=== PATIENT | male | born 1980 | race Caucasian/White ===

== ENCOUNTER 2019-03-31 15:07 | Inpatient (IN) | payer OTHER ==
[2019-03-31 19:06] VITALS: BMI 24.0
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
[2019-03-31] MEDS ORDERED: chlordiazePOXIDE HCL 25 MG CAPSULE PO PRN (21:07)
[2019-03-31] MEDS ORDERED: MENTHOL/PHENOL 1 EACH UD MM PRN (21:09)
[2019-03-31] MEDS ORDERED: METHOCARBAMOL 500 MG TABLET PO PRN (21:09)
[2019-03-31] MEDS ORDERED: MAGNESIUM CITRATE 300 ML BOTTLE PO PRN (21:09)
[2019-03-31] MEDS ORDERED: MAGNESIUM HYDROX 2400MG/30ML ORAL SUSPENSION 30 ML CUP PO PRN (21:09)
[2019-03-31] MEDS ORDERED: MELATONIN 5 MG TABLETS PO PRN (21:09)
[2019-03-31] MEDS ORDERED: IBUPROFEN 400 MG TABLET (FP) PO PRN (21:09)
[2019-03-31] MEDS ORDERED: ACETAMINOPHEN 325 MG TABLET (FP) PO PRN ×2 (21:09)
[2019-03-31] MEDS ORDERED: NICOTINE POLACRILEX 2 MG GUM BUC PRN (21:09)
[2019-03-31] MEDS: GABAPENTIN 300 MG CAPSULE (FP) PO SCH (22:52)
[2019-03-31] MEDS: chlordiazePOXIDE HCL 25 MG CAPSULE PO SCH (22:52)
[2019-03-31] MEDS: THIAMINE HCL 100 MG TABLET (FP) PO SCH (22:52)
[2019-03-31] MEDS: MIRTAZAPINE 15 MG TABLET (FP) PO SCH (22:52)
[2019-04-01] MEDS: chlordiazePOXIDE HCL 25 MG CAPSULE PO SCH ×4 (05:44→22:12)
[2019-04-01] MEDS: GABAPENTIN 300 MG CAPSULE (FP) PO SCH ×3 (05:45→22:12)
[2019-04-01] MEDS ORDERED: BUPRENORPHINE/NALOXONE 8 MG/2 MG FILM PACKET SL ONE (10:00)
[2019-04-01] MEDS: PRENATAL VITAMINS W/ FOLIC ACID TABLET (FP) PO SCH (10:15)
[2019-04-01] MEDS: NICOTINE 14 MG/24 HOURS TOPICAL PATCH TD SCH (10:15)
[2019-04-01 12:05] LABS: HEMATOCRIT 41.1 % (35.4-49); HEMOGLOBIN 13.7 GM/dL (11.7-16.9); MCH 30.7 pg (25.7-33.7); MCHC 33.4 g/dl (32.0-35.9); MEAN PLT VOLUME 9.2 fl (7.5-11.1); PLATELET COUNT 219 K/MM3 (134-434); RBC 4.47 M/mm3 (4.00-5.60); RDW 13.3 % (11.9-15.9); WHITE BLOOD COUNT 6.2 K/mm3 (4.0-10.0)
[2019-04-01 12:15] LABS: ALBUMIN 3.7 g/dl (3.4-5.0); BILIRUBIN,TOTAL 0.6 mg/dL (0.2-1); BLOOD UREA NITROGEN 13.4 mg/dL (7-18); CALCIUM 8.8 mg/dL (8.5-10.1); CREATININE 0.8 mg/dL (0.55-1.3); POTASSIUM 4.4 mmol/L (3.5-5.1); TOT PROT 6.6 g/dl (6.4-8.2)
--- NOTE | 2019-04-01 12:18 | EKG ---
Test Reason : Blood Pressure : / mmHG Vent. Rate : 067 BPM Atrial Rate : 067 BPM P-R Int : 154 ms QRS Dur : 092 ms QT Int : 390 ms P-R-T Axes : 070 080 060 degrees QTc Int : 412 ms NORMAL SINUS RHYTHM WITH SINUS ARRHYTHMIA NORMAL ECG NO PREVIOUS ECGS AVAILABLE Confirmed by CARLOS MCNAMARA MD ([id number]) on 04/01/2019 12:17:40 PM Referred By: ZARI HAYNES Confirmed By:CARLOS MCNAMARA MD
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
--- NOTE | 2019-04-01 14:40 | PN ---
S CIWA - CIWA Score Nausea/Vomitin-No Nausea/No Vomiting Muscle Tremors: 3 Anxiety: 3 Agitation: 1-Slight > Activity Paroxysmal Sweats: No Perspiration Orientation: 0-Oriented Tacttile Disturbances: 2-Mild Itch/Numbness/Burn Auditory Disturbances: 2-Mild Harshness/Frighten Visual Disturbances: 1-Very Mild Sensitivity Headache: 0-None Present CIWA-Ar Total Score: 12 BHS Progress Note (SOAP) Subjective: Tremors, Anxious, Fatigue. Objective: PATIENT A & O X 3. IN NO ACUTE DISTRESS. 04/01/19 14:37 Vital Signs Temperature 97.0 F L 04/01/19 13:34 Pulse Rate 56 L 04/01/19 13:34 Respiratory Rate 16 04/01/19 13:34 Blood Pressure 99/64 04/01/19 13:34 O2 Sat by Pulse Oximetry (%) Laboratory Tests 04/01/19 04/01/19 04/01/19 08:13 08:13 08:13 WBC 6.2 RBC 4.47 Hgb 13.7 Hct 41.1 MCV 92.0 MCH 30.7 MCHC 33.4 RDW 13.3 Plt Count 219 MPV 9.2 Sodium 143 Potassium 4.4 Chloride 106 Carbon Dioxide 28 Anion Gap 9 BUN 13.4 Creatinine 0.8 Est GFR (CKD-EPI)AfAm 129.51 Est GFR (CKD-EPI)NonAf 111.74 Random Glucose 85 Calcium 8.8 Total Bilirubin 0.6 AST 17 ALT 21 Alkaline Phosphatase 58 Total Protein 6.6 Albumin 3.7 RPR Titer Nonreactive LABS NOTED. RESULTS OF DETOX ADMISSION QFT /TB TEST PENDING. 04/01/19 14:39 Assessment: 04/01/19 14:38 WITHDRAWAL SYMPTOMS. Plan: CONTINUE DETOX.
[2019-04-01] MEDS: MIRTAZAPINE 15 MG TABLET (FP) PO SCH (22:12)
[2019-04-01] MEDS: THIAMINE HCL 100 MG TABLET (FP) PO SCH (22:12)
[2019-04-01] MEDS: QUEtiapine FUMARATE 50 MG TABLET PO SCH (22:12)
[2019-04-02] MEDS: GABAPENTIN 300 MG CAPSULE (FP) PO SCH ×3 (05:50→22:09)
[2019-04-02] MEDS: chlordiazePOXIDE HCL 25 MG CAPSULE PO SCH ×4 (05:50→22:09)
[2019-04-02] MEDS: SERTRALINE HCL 50 MG TABLET (FP) PO SCH (11:00)
[2019-04-02] MEDS: PRENATAL VITAMINS W/ FOLIC ACID TABLET (FP) PO SCH (11:00)
[2019-04-02] MEDS: NICOTINE 14 MG/24 HOURS TOPICAL PATCH TD SCH (11:01)
[2019-04-02] MEDS: BUPRENORPHINE/NALOXONE 8 MG/2 MG FILM PACKET SL SCH (13:35)
--- NOTE | 2019-04-02 13:41 | PN ---
S CIWA - CIWA Score Nausea/Vomitin Muscle Tremors: 3 Anxiety: 4-Mod. Anxious/Guarded Agitation: 3 Paroxysmal Sweats: 3 Orientation: 0-Oriented Tacttile Disturbances: 0-None Auditory Disturbances: 0-None Visual Disturbances: 0-None Headache: 0-None Present CIWA-Ar Total Score: 15 S Progress Note (SOAP) Subjective: Tremors, Sweating, Anxious, Stomach Cramping, Diarrhea. Patient reports that he believes that he has "Food Poisoning.' He also reports that he was vomiting earlier, but that that has subsided now. Objective: PATIENT A & O X 3, OBSERVED AMBULATING ON UNIT UNASSISTED. 04/02/19 13:33 Vital Signs Temperature 97.1 F L 04/02/19 13:26 Pulse Rate 90 04/02/19 13:26 Respiratory Rate 18 04/02/19 13:26 Blood Pressure 109/70 04/02/19 13:26 O2 Sat by Pulse Oximetry (%) Laboratory Tests 04/01/19 04/01/19 04/01/19 08:13 08:13 08:13 WBC 6.2 RBC 4.47 Hgb 13.7 Hct 41.1 MCV 92.0 MCH 30.7 MCHC 33.4 RDW 13.3 Plt Count 219 MPV 9.2 Sodium 143 Potassium 4.4 Chloride 106 Carbon Dioxide 28 Anion Gap 9 BUN 13.4 Creatinine 0.8 Est GFR (CKD-EPI)AfAm 129.51 Est GFR (CKD-EPI)NonAf 111.74 Random Glucose 85 Calcium 8.8 Total Bilirubin 0.6 AST 17 ALT 21 Alkaline Phosphatase 58 Total Protein 6.6 Albumin 3.7 RPR Titer Nonreactive LABS NOTED. RESULTS OF DETOX ADMISSION QFT /TB TEST PENDING 04/02/19 13:34 Assessment: 04/02/19 13:34 WITHDRAWAL SYMPTOMS. Plan: CONTINUE DETOX. INCREASE DAILY PO WATER INTAKE. PATIENT REPORTS HISTORY OF PRESCRIBED SUBOXONE, 8/2 MG SL DAILY. PATIENT REPORTS THAT HE PICKS MEDICATION UP DIRECTLY FROM HIS SUBOXONE MEDICAL PROVIDER (DR. FANY RAMOS [place], [place] [facility] I-STOP PROVIDER REGISTRY (SEE BELOW) SHOWS THAT PATIENT WAS LAST DISPENSED SUBOXONE, 8-2 MG SL TID (30-DAY SUPPLY) ON 03/02/2019. THIS CONFIRMED BY PHARMACIST ROCIO AT DISPENSING PHARMACY ([facility], [place], [place]). HOWEVER, ACCORDING TO PATIENT, PER INSTRUCTIONS OF DR. RAMOS, HE ONLY TAKES 1 FILM OF SUBOXONE, 8-2 MG SL DAILY BECAUSE IT CAUSES HIM TO BE CONSTIPATED AND TO FEEL ABDOMINAL DISCOMFORT WHEN HE TAKES IT TID. NURSING ATTENDANT ATTEMPTED TO CONTACT DR. RAMOS'S OFFICE DIRECTLY X 3 TIMES; HOWEVER, ONLY RECEIVED VOICEMAIL GREETING EACH TIME. SUBOXONE WAS PRESENT IN DETOX ADMISSION UDS. WILL ORDER SUBOXONE, 8-2 MG SL DAILY FOR DETOX ADMISSION. PATIENT VERBALIZED UNDERSTANDING AND VERBALIZED CONSENT OF THIS ORDER. Confidential Drug Utilization Report Search Terms: Evgeny Delatorre, 1980 Search Date: 04/02/2019 01:36:52 PM The Drug Utilization Report below displays all of the controlled substance prescriptions, if any, that your patient has filled in the last twelve months. The information displayed on this report is compiled from pharmacy submissions to the Department, and accurately reflects the information as submitted by the pharmacies. This report was requested by: Nicolás Tsang | Reference #: [id number] You have not added a MIKI number. Keeping your MIKI number(s) up to date on the My MIKI Numbers page will enable the separation of your prescriptions from others ' in the search results. Others' Prescriptions Patient Name: Evgeny Delatorre Date: 1980 Address: [address] [place] [address] Sex: Male Rx Written Rx Dispensed Drug Quantity Days Supply Prescriber Name 03/01/2019 03/02/2019 buprenorphine-naloxone 8-2 mg sl film 90 30 Fany Ramos MD 01/31/2019 02/01/2019 buprenorphine-naloxone 8-2 mg sl film 90 30 Fany Ramos MD 12/08/2018 12/09/2018 buprenorphine-naloxone 8-2 mg sl tablet 90 30 Fany Ramos MD 10/06/2018 10/07/2018 buprenorphine-naloxone 8-2 mg sl tablet 90 30 Fany Ramos MD Patient Name: Evgeny Delatorre Date: 1980 Address: [place] [address] Sex: Male Rx Written Rx Dispensed Drug Quantity Days Supply Prescriber Name 05/31/2018 05/31/2018 clonazepam 0.5 mg tablet 28 14 Mark Liriano 04/30/2018 04/30/2018 clonazepam 0.5 mg tablet 60 30 Mark Liriano
[2019-04-02] MEDS: BISMUTH SUBSALICYLATE 524 MG/30 ML UD PO PRN (17:40)
[2019-04-02] MEDS: MIRTAZAPINE 15 MG TABLET (FP) PO SCH (22:09)
[2019-04-02] MEDS: THIAMINE HCL 100 MG TABLET (FP) PO SCH (22:09)
[2019-04-02] MEDS: QUEtiapine FUMARATE 50 MG TABLET PO SCH (22:09)
[2019-04-03] MEDS ORDERED: chlordiazePOXIDE HCL 10 MG CAPSULE PO PRN
[2019-04-03] MEDS: BISMUTH SUBSALICYLATE 524 MG/30 ML UD PO PRN ×2 (01:10→19:27)
[2019-04-03] MEDS: MAG HYDROX/AL HYDROX/SIMETH 30 ML UNIT-DOSE CUP PO PRN ×2 (04:03→18:03)
[2019-04-03] MEDS: GABAPENTIN 300 MG CAPSULE (FP) PO SCH ×3 (05:49→22:19)
[2019-04-03] MEDS: chlordiazePOXIDE HCL 10 MG CAPSULE PO SCH ×4 (05:49→22:22)
[2019-04-03] MEDS: NICOTINE 14 MG/24 HOURS TOPICAL PATCH TD SCH (10:36)
[2019-04-03] MEDS: PRENATAL VITAMINS W/ FOLIC ACID TABLET (FP) PO SCH (10:36)
[2019-04-03] MEDS: BUPRENORPHINE/NALOXONE 8 MG/2 MG FILM PACKET SL SCH (10:36)
[2019-04-03] MEDS: SERTRALINE HCL 50 MG TABLET (FP) PO SCH (10:36)
--- NOTE | 2019-04-03 13:13 | PN ---
[facility] CIWA - CIWA Score Nausea/Vomitin-Mild Nausea/No Vomiting Muscle Tremors: 3 Anxiety: 2 Agitation: 3 Paroxysmal Sweats: 1-Minimal Palms Moist Orientation: 0-Oriented Tacttile Disturbances: 0-None Auditory Disturbances: 0-None Visual Disturbances: 0-None Headache: 1-Very Mild CIWA-Ar Total Score: 11 S Progress Note (SOAP) Subjective: 38 years old male 2nd patient [facility] admission since 2019 was admitted on 03/31/19 for alcohol withdrawal sx management doing well with librium detox regimen diarrhea x 1 tolerate fluid and food well Objective: 04/03/19 13:15 Vital Signs Temperature 97.1 F L 04/03/19 09:50 Pulse Rate 65 04/03/19 09:50 Respiratory Rate 18 04/03/19 09:50 Blood Pressure 96/54 L 04/03/19 09:50 O2 Sat by Pulse Oximetry (%) Laboratory Last Values WBC 6.2 K/mm3 (4.0-10.0) 04/01/19 08:13 RBC 4.47 M/mm3 (4.00-5.60) 04/01/19 08:13 Hgb 13.7 GM/dL (11.7-16.9) 04/01/19 08:13 Hct 41.1 % (35.4-49) 04/01/19 08:13 MCV 92.0 fl (80-96) 04/01/19 08:13 MCH 30.7 pg (25.7-33.7) 04/01/19 08:13 MCHC 33.4 g/dl (32.0-35.9) 04/01/19 08:13 RDW 13.3 % (11.9-15.9) 04/01/19 08:13 Plt Count 219 K/MM3 (134-434) 04/01/19 08:13 MPV 9.2 fl (7.5-11.1) 04/01/19 08:13 Sodium 143 mmol/L (136-145) 04/01/19 08:13 Potassium 4.4 mmol/L (3.5-5.1) 04/01/19 08:13 Chloride 106 mmol/L (98-107) 04/01/19 08:13 Carbon Dioxide 28 mmol/L (21-32) 04/01/19 08:13 Anion Gap 9 MMOL/L (8-16) 04/01/19 08:13 BUN 13.4 mg/dL (7-18) 04/01/19 08:13 Creatinine 0.8 mg/dL (0.55-1.3) 04/01/19 08:13 Est GFR (CKD-EPI)AfAm 129.51 04/01/19 08:13 Est GFR (CKD-EPI)NonAf 111.74 04/01/19 08:13 Random Glucose 85 mg/dL (74-106) 04/01/19 08:13 Calcium 8.8 mg/dL (8.5-10.1) 04/01/19 08:13 Total Bilirubin 0.6 mg/dL (0.2-1) 04/01/19 08:13 AST 17 U/L (15-37) 04/01/19 08:13 ALT 21 U/L (13-61) 04/01/19 08:13 Alkaline Phosphatase 58 U/L (45-117) 04/01/19 08:13 Total Protein 6.6 g/dl (6.4-8.2) 04/01/19 08:13 Albumin 3.7 g/dl (3.4-5.0) 04/01/19 08:13 RPR Titer Nonreactive (NONREACTIVE) 04/01/19 08:13 TB (QFT) Incubation (.) 04/01/19 08:13 TB Test (QFT) Nil 0.08 IU/mL (.) 04/01/19 08:13 TB Test (QFT) Mitogen >10.00 IU/mL (.) 04/01/19 08:13 TB Test (QFT) Antigen 0.19 IU/mL (.) 04/01/19 08:13 TB Test (QFT) Negative (Negative) 04/01/19 08:13 TB Positive Criteria (.) 04/01/19 08:13 lab noted Assessment: 04/03/19 13:15 alcohol withdrawal sx Plan: continue librium detox regimen
[2019-04-03] MEDS ORDERED: LOPERAMIDE HCL 2 MG CAPSULE PO PRN (21:31)
[2019-04-03] MEDS: THIAMINE HCL 100 MG TABLET (FP) PO SCH (22:19)
[2019-04-03] MEDS: MIRTAZAPINE 15 MG TABLET (FP) PO SCH (22:19)
[2019-04-03] MEDS: QUEtiapine FUMARATE 50 MG TABLET PO SCH (22:19)
[2019-04-04] MEDS: chlordiazePOXIDE HCL 10 MG CAPSULE PO SCH ×2 (06:14→17:38)
[2019-04-04] MEDS: GABAPENTIN 300 MG CAPSULE (FP) PO SCH ×3 (06:14→22:09)
--- NOTE | 2019-04-04 09:26 | PN ---
[facility] CIWA - CIWA Score Nausea/Vomitin-No Nausea/No Vomiting Muscle Tremors: 3 Anxiety: 2 Agitation: 2 Paroxysmal Sweats: 1-Minimal Palms Moist Orientation: 0-Oriented Tacttile Disturbances: 0-None Auditory Disturbances: 0-None Visual Disturbances: 0-None Headache: 0-None Present CIWA-Ar Total Score: 8 S Progress Note (SOAP) Subjective: doing well with librium detox regimen hesitate to discuss aftercare with staff discuss the risks of hepatitis c in relation to alcohol drinking alert speech clearly agrees to consider aftercare Objective: 04/04/19 09:29 Vital Signs Temperature 97.0 F L 04/04/19 09:28 Pulse Rate 64 04/04/19 09:28 Respiratory Rate 18 04/04/19 09:28 Blood Pressure 109/77 04/04/19 09:28 O2 Sat by Pulse Oximetry (%) Laboratory Last Values WBC 6.2 K/mm3 (4.0-10.0) 04/01/19 08:13 RBC 4.47 M/mm3 (4.00-5.60) 04/01/19 08:13 Hgb 13.7 GM/dL (11.7-16.9) 04/01/19 08:13 Hct 41.1 % (35.4-49) 04/01/19 08:13 MCV 92.0 fl (80-96) 04/01/19 08:13 MCH 30.7 pg (25.7-33.7) 04/01/19 08:13 MCHC 33.4 g/dl (32.0-35.9) 04/01/19 08:13 RDW 13.3 % (11.9-15.9) 04/01/19 08:13 Plt Count 219 K/MM3 (134-434) 04/01/19 08:13 MPV 9.2 fl (7.5-11.1) 04/01/19 08:13 Sodium 143 mmol/L (136-145) 04/01/19 08:13 Potassium 4.4 mmol/L (3.5-5.1) 04/01/19 08:13 Chloride 106 mmol/L (98-107) 04/01/19 08:13 Carbon Dioxide 28 mmol/L (21-32) 04/01/19 08:13 Anion Gap 9 MMOL/L (8-16) 04/01/19 08:13 BUN 13.4 mg/dL (7-18) 04/01/19 08:13 Creatinine 0.8 mg/dL (0.55-1.3) 04/01/19 08:13 Est GFR (CKD-EPI)AfAm 129.51 04/01/19 08:13 Est GFR (CKD-EPI)NonAf 111.74 04/01/19 08:13 Random Glucose 85 mg/dL (74-106) 04/01/19 08:13 Calcium 8.8 mg/dL (8.5-10.1) 04/01/19 08:13 Total Bilirubin 0.6 mg/dL (0.2-1) 04/01/19 08:13 AST 17 U/L (15-37) 04/01/19 08:13 ALT 21 U/L (13-61) 04/01/19 08:13 Alkaline Phosphatase 58 U/L (45-117) 04/01/19 08:13 Total Protein 6.6 g/dl (6.4-8.2) 04/01/19 08:13 Albumin 3.7 g/dl (3.4-5.0) 04/01/19 08:13 RPR Titer Nonreactive (NONREACTIVE) 04/01/19 08:13 TB (QFT) Incubation (.) 04/01/19 08:13 TB Test (QFT) Nil 0.08 IU/mL (.) 04/01/19 08:13 TB Test (QFT) Mitogen >10.00 IU/mL (.) 04/01/19 08:13 TB Test (QFT) Antigen 0.19 IU/mL (.) 04/01/19 08:13 TB Test (QFT) Negative (Negative) 04/01/19 08:13 TB Positive Criteria (.) 04/01/19 08:13 lab noted Assessment: 04/04/19 09:30 alcohol withdrawal sx Plan: continue librium detox regimen
[2019-04-04] MEDS: SERTRALINE HCL 50 MG TABLET (FP) PO SCH (10:05)
[2019-04-04] MEDS: BUPRENORPHINE/NALOXONE 8 MG/2 MG FILM PACKET SL SCH (10:05)
[2019-04-04] MEDS: PRENATAL VITAMINS W/ FOLIC ACID TABLET (FP) PO SCH (10:05)
[2019-04-04] MEDS: NICOTINE 14 MG/24 HOURS TOPICAL PATCH TD SCH (10:06)
[2019-04-04] MEDS: QUEtiapine FUMARATE 50 MG TABLET PO SCH (22:09)
[2019-04-04] MEDS: MIRTAZAPINE 15 MG TABLET (FP) PO SCH (22:09)
[2019-04-04] MEDS: THIAMINE HCL 100 MG TABLET (FP) PO SCH (22:09)
[2019-04-05] MEDS ORDERED: chlordiazePOXIDE HCL 10 MG CAPSULE PO ONE (05:00)
[2019-04-05] MEDS: GABAPENTIN 300 MG CAPSULE (FP) PO SCH ×2 (07:12→13:12)
--- NOTE | 2019-04-05 09:25 | DS ---
[facility] Detox Discharge Summary Admission Date: 03/31/19 Discharge Date: 04/05/19 - History Present History: Alcohol Dependence Additional Comments: 38 years old male admitted on 03/31/19 for alcohol withdrawal sx management did well with librium detox regimen no complication throughout the detox stay seen by psychiatrist treated with remeron zoloft seroquel patient is alert oriented x 3 denies dizziness ambulating steady gait speech clearly coherently abdomen soft no rebound tenderness skin warm and dry - Physical Exam Results Vital Signs: Vital Signs Temperature 98.2 F 04/05/19 06:11 Pulse Rate 61 04/05/19 06:11 Respiratory Rate 18 04/05/19 06:11 Blood Pressure 100/61 04/05/19 06:11 O2 Sat by Pulse Oximetry (%) Pertinent Admission Physical Exam Findings: alcohol withdrawal sx Laboratory Last Values WBC 6.2 K/mm3 (4.0-10.0) 04/01/19 08:13 RBC 4.47 M/mm3 (4.00-5.60) 04/01/19 08:13 Hgb 13.7 GM/dL (11.7-16.9) 04/01/19 08:13 Hct 41.1 % (35.4-49) 04/01/19 08:13 MCV 92.0 fl (80-96) 04/01/19 08:13 MCH 30.7 pg (25.7-33.7) 04/01/19 08:13 MCHC 33.4 g/dl (32.0-35.9) 04/01/19 08:13 RDW 13.3 % (11.9-15.9) 04/01/19 08:13 Plt Count 219 K/MM3 (134-434) 04/01/19 08:13 MPV 9.2 fl (7.5-11.1) 04/01/19 08:13 Sodium 143 mmol/L (136-145) 04/01/19 08:13 Potassium 4.4 mmol/L (3.5-5.1) 04/01/19 08:13 Chloride 106 mmol/L (98-107) 04/01/19 08:13 Carbon Dioxide 28 mmol/L (21-32) 04/01/19 08:13 Anion Gap 9 MMOL/L (8-16) 04/01/19 08:13 BUN 13.4 mg/dL (7-18) 04/01/19 08:13 Creatinine 0.8 mg/dL (0.55-1.3) 04/01/19 08:13 Est GFR (CKD-EPI)AfAm 129.51 04/01/19 08:13 Est GFR (CKD-EPI)NonAf 111.74 04/01/19 08:13 Random Glucose 85 mg/dL (74-106) 04/01/19 08:13 Calcium 8.8 mg/dL (8.5-10.1) 04/01/19 08:13 Total Bilirubin 0.6 mg/dL (0.2-1) 04/01/19 08:13 AST 17 U/L (15-37) 04/01/19 08:13 ALT 21 U/L (13-61) 04/01/19 08:13 Alkaline Phosphatase 58 U/L (45-117) 04/01/19 08:13 Total Protein 6.6 g/dl (6.4-8.2) 04/01/19 08:13 Albumin 3.7 g/dl (3.4-5.0) 04/01/19 08:13 RPR Titer Nonreactive (NONREACTIVE) 04/01/19 08:13 TB (QFT) Incubation (.) 04/01/19 08:13 TB Test (QFT) Nil 0.08 IU/mL (.) 04/01/19 08:13 TB Test (QFT) Mitogen >10.00 IU/mL (.) 04/01/19 08:13 TB Test (QFT) Antigen 0.19 IU/mL (.) 04/01/19 08:13 TB Test (QFT) Negative (Negative) 04/01/19 08:13 TB Positive Criteria (.) 04/01/19 08:13 lab noted patient prefers returning to suboxone program for medical and mental issues - Treatment Hospital Course: Detox Protocol Followed, Detoxed Safely, Responded well, Discharged Condition Good, Rehab Referral Accepted Patient has Accepted a Rehab Referral to: suboxone maintenance program - Medication Discharge Medications: Ambulatory Orders Buprenorphine HCl/Naloxone HCl [Suboxone 8 mg-2 mg Sl Tablets] 8 mg PO TID 03/31 Gabapentin [Neurontin] 300 mg PO TID 03/31/19 Mirtazapine [Remeron -] 15 mg PO HS 03/31/19 Sertraline HCl [Zoloft -] 50 mg PO DAILY 03/31/19 - Diagnosis (1) Encounter for monitoring Suboxone maintenance therapy Current Visit: Yes Status: Chronic (2) Alcohol dependence with uncomplicated withdrawal Current Visit: Yes Status: Acute (3) Chronic viral hepatitis C Current Visit: Yes Status: Chronic Qualifiers: Hepatic coma status: without hepatic coma Qualified Code(s): B18.2 - Chronic viral hepatitis C (4) Nicotine dependence Current Visit: Yes Status: Acute Qualifiers: Nicotine product type: cigarettes Substance use status: in withdrawal Qualified Code(s): F17.213 - Nicotine dependence, cigarettes, with withdrawal (5) Substance induced mood disorder Current Visit: Yes Status: Suspected - AMA Did Patient Leave Against Medical Advice: No CIWA Score - CIWA Score Nausea/Vomitin-No Nausea/No Vomiting Muscle Tremors: 2 Anxiety: 1-Mildly Anxious Agitation: 1-Slight > Activity Paroxysmal Sweats: No Perspiration Orientation: 0-Oriented Tacttile Disturbances: 0-None Auditory Disturbances: 0-None Visual Disturbances: 0-None Headache: 0-None Present CIWA-Ar Total Score: 4
[2019-04-05 09:52] VITALS: BP 104/73; PULSE 625; TEMP 97.4
[2019-04-05] MEDS: SERTRALINE HCL 50 MG TABLET (FP) PO SCH (10:09)
[2019-04-05] MEDS: BUPRENORPHINE/NALOXONE 8 MG/2 MG FILM PACKET SL SCH (10:09)
[2019-04-05] MEDS: PRENATAL VITAMINS W/ FOLIC ACID TABLET (FP) PO SCH (10:09)
[2019-04-05] MEDS: NICOTINE 14 MG/24 HOURS TOPICAL PATCH TD SCH (10:12)
== END 2019-04-05 14:20 | disposition other institution (70) | DRG 773 ==
LOC: YASAS 15:07 → Y3N 22:14
PROVIDERS: ADMIT Surgery; ATTEND Surgery
PROC: HZ2ZZZZ Detoxification Services for Substance Abuse Treatment (ICD-10-PCS; principal; 2019-03-31)
DX: F10.230 Alcohol dependence with withdrawal, uncomplicated (principal); F11.20 Opioid dependence, uncomplicated; F14.20 Cocaine dependence, uncomplicated; F16.10 Hallucinogen abuse, uncomplicated; F17.213 Nicotine dependence, cigarettes, with withdrawal; F20.9 Schizophrenia, unspecified; F19.24 Other psychoactive substance dependence with psychoactive substance-induced mood disorder; F32.9 Major depressive disorder, single episode, unspecified; G47.00 Insomnia, unspecified; B18.2 Chronic viral hepatitis C; Z51.81 Encounter for therapeutic drug level monitoring; Z91.5 Personal history of self-harm
CPT/HCPCS: 36415; 80053; 85027; 86480; 86593; 93005; 93010

== ENCOUNTER 2019-04-05 14:24 | Inpatient (IN) | payer OTHER ==
[2019-04-05] MEDS ORDERED: MENTHOL/PHENOL 1 EACH UD MM PRN (15:15)
[2019-04-05] MEDS ORDERED: LOPERAMIDE HCL 2 MG CAPSULE PO PRN (15:15)
[2019-04-05] MEDS ORDERED: NICOTINE POLACRILEX 2 MG GUM BUC PRN (15:15)
[2019-04-05] MEDS ORDERED: MAGNESIUM HYDROX 2400MG/30ML ORAL SUSPENSION 30 ML CUP PO PRN (15:15)
[2019-04-05] MEDS ORDERED: MAGNESIUM CITRATE 300 ML BOTTLE PO PRN (15:15)
[2019-04-05] MEDS ORDERED: MAG HYDROX/AL HYDROX/SIMETH 30 ML UNIT-DOSE CUP PO PRN (15:15)
[2019-04-05] MEDS ORDERED: ACETAMINOPHEN 325 MG TABLET (FP) PO PRN (15:15)
[2019-04-05] MEDS ORDERED: IBUPROFEN 400 MG TABLET (FP) PO PRN (15:15)
[2019-04-05] MEDS ORDERED: guaiFENesin 200 MG/10 ML 10 ML UNIT-DOSE CUPS PO PRN (15:15)
[2019-04-05] MEDS ORDERED: P-EPHED 60MG/TRIPROLIDI 2.5MG TABLET PO PRN (15:15)
--- NOTE | 2019-04-05 15:15 | HP ---
[facility] Rehab Assess/Revision - Admission History Admitted to Rehab from: [facility] Date of Admission to Rehab: 04/05/19 - Findings Detox History & Physical reviewed: Yes Concur with findings: Yes Comments/Additional Findings: transferred from detox to rehab admission as per protocol Inpatient Rehab Admission - Rehab Decision to Admit Inpatient rehab admission?: Yes - Initial Determination Are CD services needed?: Yes Free of communicable disease: Yes Not in need of hospitalization: Yes - Rehab Admission Criteria Previous failed treatment: Yes Poor recovery environment: Yes Comorbidities: Yes Lacks judgement: Yes Patient is meeting Inpatient Rehab admission criteria:: Yes
[2019-04-05] MEDS: HYDROCORTISONE 1% TOPICAL CREAM 30 GM TUBE TP SCH ×2 (17:59→21:06)
[2019-04-05] MEDS: MIRTAZAPINE 15 MG TABLET (FP) PO SCH (21:07)
[2019-04-05] MEDS: GABAPENTIN 300 MG CAPSULE (FP) PO SCH (21:07)
[2019-04-05] MEDS: THIAMINE HCL 100 MG TABLET (FP) PO SCH (21:07)
[2019-04-05] MEDS: MELATONIN 5 MG TABLETS PO PRN (21:07)
[2019-04-05] MEDS: RANITIDINE HCL 150 MG TABLET (FP) PO SCH (21:07)
[2019-04-06] MEDS: GABAPENTIN 300 MG CAPSULE (FP) PO SCH ×3 (06:23→21:06)
[2019-04-06] MEDS: SERTRALINE HCL 50 MG TABLET (FP) PO SCH (10:05)
[2019-04-06] MEDS: HYDROCORTISONE 1% TOPICAL CREAM 30 GM TUBE TP SCH ×4 (10:05→21:05)
[2019-04-06] MEDS: PRENATAL VITAMINS W/ FOLIC ACID TABLET (FP) PO SCH (10:05)
[2019-04-06] MEDS: RANITIDINE HCL 150 MG TABLET (FP) PO SCH ×2 (10:05→21:06)
[2019-04-06] MEDS: NICOTINE 14 MG/24 HOURS TOPICAL PATCH TD SCH (10:06)
[2019-04-06] MEDS: BUPRENORPHINE/NALOXONE 8 MG/2 MG FILM PACKET SL SCH (10:08)
[2019-04-06] MEDS: MELATONIN 5 MG TABLETS PO PRN (21:06)
[2019-04-06] MEDS: MIRTAZAPINE 15 MG TABLET (FP) PO SCH (21:06)
[2019-04-06] MEDS: THIAMINE HCL 100 MG TABLET (FP) PO SCH (21:06)
[2019-04-07] MEDS: GABAPENTIN 300 MG CAPSULE (FP) PO SCH ×3 (06:53→21:02)
[2019-04-07] MEDS: RANITIDINE HCL 150 MG TABLET (FP) PO SCH ×2 (09:55→21:02)
[2019-04-07] MEDS: SERTRALINE HCL 50 MG TABLET (FP) PO SCH (09:55)
[2019-04-07] MEDS: PRENATAL VITAMINS W/ FOLIC ACID TABLET (FP) PO SCH (09:56)
[2019-04-07] MEDS: BUPRENORPHINE/NALOXONE 8 MG/2 MG FILM PACKET SL SCH (09:59)
[2019-04-07] MEDS: HYDROCORTISONE 1% TOPICAL CREAM 30 GM TUBE TP SCH ×4 (09:59→21:02)
[2019-04-07] MEDS: NICOTINE 14 MG/24 HOURS TOPICAL PATCH TD SCH (09:59)
--- NOTE | 2019-04-07 11:58 | PN ---
[facility] Progress Note Note: Pt is requesting for a lower dose of suboxone from 8mg/2mg to 4mg/1mg because has personal reasons "plans of testimony of book to be published is supposed to be clean not sober. So I plan to go down to 2 mg then off in seven months'. pt also reports physical side effect reasons of constipation. Pt states he is with [facility] [place] on [address] [place] [address]. Ph: . Call was placed to this program today but no response. Pt c/o numbness to either of his upper extremities lately when he lays on any side of them at night and wonders if Neurontin is the cause. Pt states he has been on Neurontin for awhile and no complaints. Pt denies pain or tingling at this time. Vital Signs - 24 hr 04/07/19 04/07/19 04/07/19 00:30 03:30 07:03 Temperature 96.2 F L Pulse Rate 45 L Respiratory 18 18 18 Rate Blood Pressure 116/75 Alert o x 3 Nad oob, ambulating and participating on the unit with no difficulty. Extremities:Active ROM; Strength +5; No pain/swelling noted. A/P Suboxone MAT Increase po fluids Colace if needed for stool softner D/w Pt he will follow up with psych consult for re-eval of meds. Pt is agreeable to poc.
[2019-04-07] MEDS: MIRTAZAPINE 15 MG TABLET (FP) PO SCH (21:02)
[2019-04-07] MEDS: THIAMINE HCL 100 MG TABLET (FP) PO SCH (21:02)
[2019-04-08] MEDS: GABAPENTIN 300 MG CAPSULE (FP) PO SCH ×3 (06:58→21:03)
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
[2019-04-08] MEDS: PRENATAL VITAMINS W/ FOLIC ACID TABLET (FP) PO SCH (09:58)
[2019-04-08] MEDS: HYDROCORTISONE 1% TOPICAL CREAM 30 GM TUBE TP SCH ×4 (09:58→21:03)
[2019-04-08] MEDS: SERTRALINE HCL 50 MG TABLET (FP) PO SCH (09:58)
[2019-04-08] MEDS: RANITIDINE HCL 150 MG TABLET (FP) PO SCH ×2 (09:58→21:02)
[2019-04-08] MEDS: NICOTINE 14 MG/24 HOURS TOPICAL PATCH TD SCH (09:58)
[2019-04-08] MEDS: BUPRENORPHINE/NALOXONE 4 MG/1 MG FILM PACKET SL SCH (10:00)
[2019-04-08] MEDS: hydrOXYzine PAMOATE 50 MG CAPSULE (FP) PO PRN (14:39)
[2019-04-08] MEDS: QUEtiapine FUMARATE 100 MG TABLET (FP) PO SCH (21:02)
[2019-04-08] MEDS: MIRTAZAPINE 15 MG TABLET (FP) PO SCH (21:02)
[2019-04-08] MEDS: THIAMINE HCL 100 MG TABLET (FP) PO SCH (21:03)
[2019-04-08] MEDS ORDERED: QUEtiapine FUMARATE 50 MG TABLET PO SCH (22:00)
[2019-04-09] MEDS: GABAPENTIN 300 MG CAPSULE (FP) PO SCH ×3 (06:47→21:11)
[2019-04-09] MEDS: BUPRENORPHINE/NALOXONE 4 MG/1 MG FILM PACKET SL SCH (09:36)
[2019-04-09] MEDS: PRENATAL VITAMINS W/ FOLIC ACID TABLET (FP) PO SCH (09:36)
[2019-04-09] MEDS: RANITIDINE HCL 150 MG TABLET (FP) PO SCH ×2 (09:36→21:11)
[2019-04-09] MEDS: SERTRALINE HCL 50 MG TABLET (FP) PO SCH (09:36)
[2019-04-09] MEDS: NICOTINE 14 MG/24 HOURS TOPICAL PATCH TD SCH (09:36)
[2019-04-09] MEDS: HYDROCORTISONE 1% TOPICAL CREAM 30 GM TUBE TP SCH ×4 (09:37→21:11)
[2019-04-09] MEDS: hydrOXYzine PAMOATE 50 MG CAPSULE (FP) PO PRN (14:27)
[2019-04-09] MEDS: MIRTAZAPINE 15 MG TABLET (FP) PO SCH (21:11)
[2019-04-09] MEDS: QUEtiapine FUMARATE 100 MG TABLET (FP) PO SCH (21:11)
[2019-04-09] MEDS: THIAMINE HCL 100 MG TABLET (FP) PO SCH (21:12)
[2019-04-10] MEDS: GABAPENTIN 300 MG CAPSULE (FP) PO SCH ×2 (06:25→13:47)
[2019-04-10] MEDS: PRENATAL VITAMINS W/ FOLIC ACID TABLET (FP) PO SCH (09:41)
[2019-04-10] MEDS: NICOTINE 14 MG/24 HOURS TOPICAL PATCH TD SCH (09:41)
[2019-04-10] MEDS: HYDROCORTISONE 1% TOPICAL CREAM 30 GM TUBE TP SCH ×2 (09:41→13:46)
[2019-04-10] MEDS: RANITIDINE HCL 150 MG TABLET (FP) PO SCH (09:42)
[2019-04-10] MEDS: SERTRALINE HCL 50 MG TABLET (FP) PO SCH (09:42)
[2019-04-10] MEDS: BUPRENORPHINE/NALOXONE 4 MG/1 MG FILM PACKET SL SCH (09:43)
[2019-04-10] MEDS: hydrOXYzine PAMOATE 50 MG CAPSULE (FP) PO PRN (13:47)
[2019-04-10 15:10] VITALS: BP 140/67; PULSE 85; TEMP 98.4
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
== END 2019-04-10 15:29 | disposition home or self-care (01) | DRG 772 ==
LOC: YASAS 14:24 → Y5N 14:25
PROVIDERS: ADMIT Neuromusculoskeletal Medicine & OMM; ATTEND Neuromusculoskeletal Medicine & OMM
PROC: HZ42ZZZ Group Counseling for Substance Abuse Treatment, Cognitive-Behavioral (ICD-10-PCS; principal; 2019-04-05)
DX: F10.20 Alcohol dependence, uncomplicated (principal); F11.20 Opioid dependence, uncomplicated; F14.20 Cocaine dependence, uncomplicated; F17.210 Nicotine dependence, cigarettes, uncomplicated; F20.9 Schizophrenia, unspecified; F19.282 Other psychoactive substance dependence with psychoactive substance-induced sleep disorder

== ENCOUNTER 2019-05-07 08:45 | Inpatient (IN) | payer OTHER ==
[2019-05-07 09:18] VITALS: BMI 25.2
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
[2019-05-07] MEDS ORDERED: ACETAMINOPHEN 325 MG TABLET (FP) PO PRN ×2 (13:34)
[2019-05-07] MEDS ORDERED: METHOCARBAMOL 500 MG TABLET PO PRN (13:34)
[2019-05-07] MEDS ORDERED: MAGNESIUM HYDROX 2400MG/30ML ORAL SUSPENSION 30 ML CUP PO PRN (13:34)
[2019-05-07] MEDS ORDERED: MELATONIN 5 MG TABLETS PO PRN (13:34)
[2019-05-07] MEDS ORDERED: NICOTINE POLACRILEX 2 MG GUM BUC PRN (13:34)
[2019-05-07] MEDS ORDERED: MAGNESIUM CITRATE 300 ML BOTTLE PO PRN (13:34)
[2019-05-07] MEDS ORDERED: IBUPROFEN 400 MG TABLET (FP) PO PRN (13:34)
[2019-05-07] MEDS ORDERED: BISMUTH SUBSALICYLATE 524 MG/30 ML UD PO PRN (13:34)
[2019-05-07] MEDS ORDERED: MENTHOL/PHENOL 1 EACH UD MM PRN (13:34)
[2019-05-07] MEDS ORDERED: diazePAM 5 MG TABLET PO ONE (14:00)
[2019-05-07] MEDS: METHADONE HCL 40 MG DISPERSABLE TABLET PO SCH (14:34)
[2019-05-07] MEDS: NICOTINE 14 MG/24 HOURS TOPICAL PATCH TD SCH (14:35)
[2019-05-07] MEDS: diazePAM 5 MG TABLET PO SCH ×2 (14:35→21:43)
[2019-05-07] MEDS: POLYETHYLENE GLYCOL 3350 119 GM BTL PO SCH (16:09)
[2019-05-07] MEDS: diazePAM 5 MG TABLET PO PRN (18:54)
[2019-05-07] MEDS ORDERED: QUEtiapine FUMARATE 25 MG TABLET (FP) ONE (21:06)
[2019-05-07] MEDS: THIAMINE HCL 100 MG TABLET (FP) PO SCH (21:43)
[2019-05-07] MEDS ORDERED: MIRTAZAPINE 15 MG TABLET (FP) PO ONE (22:00)
[2019-05-07] MEDS ORDERED: QUEtiapine FUMARATE 50 MG TABLET PO ONE (22:00)
[2019-05-07] MEDS: MAG HYDROX/AL HYDROX/SIMETH 30 ML UNIT-DOSE CUP PO PRN (22:55)
[2019-05-08] MEDS: POLYETHYLENE GLYCOL 3350 119 GM BTL PO SCH (03:32)
[2019-05-08] MEDS ORDERED: METHADONE HCL 10 MG TABLET PO ONE (06:00)
[2019-05-08] MEDS: METHADONE HCL 40 MG DISPERSABLE TABLET PO SCH (06:13)
[2019-05-08] MEDS: diazePAM 5 MG TABLET PO SCH ×3 (06:14→22:17)
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
[2019-05-08] MEDS: PRENATAL VITAMINS W/ FOLIC ACID TABLET (FP) PO SCH (10:05)
[2019-05-08] MEDS ORDERED: QUEtiapine FUMARATE 25 MG TABLET (FP) ONE (10:06)
[2019-05-08] MEDS: SERTRALINE HCL 50 MG TABLET (FP) PO SCH (10:06)
[2019-05-08] MEDS: QUEtiapine FUMARATE 50 MG TABLET PO SCH ×2 (10:06→22:17)
[2019-05-08] MEDS: NICOTINE 14 MG/24 HOURS TOPICAL PATCH TD SCH ×2 (10:07→13:16)
[2019-05-08 10:27] LABS: HEMATOCRIT 41.2 % (35.4-49); HEMOGLOBIN 13.4 GM/dL (11.7-16.9); MCH 30.1 pg (25.7-33.7); MCHC 32.7 g/dl (32.0-35.9); MEAN CELL VOLUME 92.1 fl (80-96); MEAN PLT VOLUME 9.7 fl (7.5-11.1); PLATELET COUNT 275 K/MM3 (134-434); RBC 4.47 M/mm3 (4.00-5.60); RDW 13.4 % (11.9-15.9); WHITE BLOOD COUNT 5.8 K/mm3 (4.0-10.0)
[2019-05-08 10:31] LABS: BILIRUBIN,TOTAL 0.3 mg/dL (0.2-1); BLOOD UREA NITROGEN 10.6 mg/dL (7-18); CALCIUM 9.1 mg/dL (8.5-10.1); CREATININE 0.9 mg/dL (0.55-1.3); POTASSIUM 4.6 mmol/L (3.5-5.1); TOT PROT 7.2 g/dl (6.4-8.2)
--- NOTE | 2019-05-08 10:38 | PN ---
S CIWA - CIWA Score Nausea/Vomitin-No Nausea/No Vomiting Muscle Tremors: 2 Anxiety: 2 Agitation: 2 Paroxysmal Sweats: 3 Orientation: 0-Oriented Tacttile Disturbances: 0-None Auditory Disturbances: 0-None Visual Disturbances: 0-None Headache: 2-Mild CIWA-Ar Total Score: 11 S Progress Note (SOAP) Subjective: c/o headache, sweats, anxiety, and interrupted sleep. Objective: 05/08/19 10:38 Vital Signs 05/08/19 05/08/19 06:24 09:23 Temperature 97 F L 97.6 F Pulse Rate 57 L 55 L Respiratory 18 18 Rate Blood Pressure 94/59 L 91/64 Lab Results WBC 5.8 K/mm3 (4.0-10.0) 05/08/19 07:15 RBC 4.47 M/mm3 (4.00-5.60) 05/08/19 07:15 Hgb 13.4 GM/dL (11.7-16.9) 05/08/19 07:15 Hct 41.2 % (35.4-49) 05/08/19 07:15 MCV 92.1 fl (80-96) 05/08/19 07:15 MCHC 32.7 g/dl (32.0-35.9) 05/08/19 07:15 RDW 13.4 % (11.9-15.9) 05/08/19 07:15 Plt Count 275 K/MM3 (134-434) D 05/08/19 07:15 Sodium 140 mmol/L (136-145) 05/08/19 07:15 Potassium 4.6 mmol/L (3.5-5.1) 05/08/19 07:15 Chloride 105 mmol/L (98-107) 05/08/19 07:15 Carbon Dioxide 32 mmol/L (21-32) 05/08/19 07:15 Anion Gap 4 MMOL/L (8-16) L 05/08/19 07:15 BUN 10.6 mg/dL (7-18) 05/08/19 07:15 Creatinine 0.9 mg/dL (0.55-1.3) 05/08/19 07:15 Random Glucose 74 mg/dL (74-106) 05/08/19 07:15 Calcium 9.1 mg/dL (8.5-10.1) 05/08/19 07:15 Labs noted. Assessment: 05/08/19 10:38 AOX3, in no respiratory distress. Full ROM, ambulating in the unit. Withdrawal symptoms. Plan: continue detox.
[2019-05-08] MEDS: diazePAM 5 MG TABLET PO PRN ×2 (11:25→19:03)
[2019-05-08] MEDS: THIAMINE HCL 100 MG TABLET (FP) PO SCH (22:17)
[2019-05-08] MEDS: MAG HYDROX/AL HYDROX/SIMETH 30 ML UNIT-DOSE CUP PO PRN (22:17)
[2019-05-08] MEDS: MIRTAZAPINE 15 MG TABLET (FP) PO SCH (22:17)
[2019-05-09] MEDS: METHADONE HCL 40 MG DISPERSABLE TABLET PO SCH (05:23)
[2019-05-09] MEDS: diazePAM 5 MG TABLET PO SCH ×2 (05:23→17:29)
[2019-05-09] MEDS: MAG HYDROX/AL HYDROX/SIMETH 30 ML UNIT-DOSE CUP PO PRN (08:19)
[2019-05-09] MEDS: PRENATAL VITAMINS W/ FOLIC ACID TABLET (FP) PO SCH (10:17)
[2019-05-09] MEDS: QUEtiapine FUMARATE 50 MG TABLET PO SCH ×2 (10:17→21:42)
[2019-05-09] MEDS: SERTRALINE HCL 50 MG TABLET (FP) PO SCH (10:17)
[2019-05-09] MEDS: diazePAM 5 MG TABLET PO PRN ×2 (10:17→21:42)
[2019-05-09] MEDS: POLYETHYLENE GLYCOL 3350 119 GM BTL PO SCH (10:23)
[2019-05-09] MEDS: NICOTINE 14 MG/24 HOURS TOPICAL PATCH TD SCH (10:23)
[2019-05-09] MEDS ORDERED: FAMOTIDINE 20 MG TABLET PO ONE (11:30)
[2019-05-09] MEDS: BACLOFEN 10 MG TABLET (FP) PO SCH ×2 (15:21→21:42)
--- NOTE | 2019-05-09 18:16 | PN ---
S CIWA - CIWA Score Nausea/Vomitin-No Nausea/No Vomiting Muscle Tremors: 2 Anxiety: 3 Agitation: 2 Paroxysmal Sweats: 3 Orientation: 0-Oriented Tacttile Disturbances: 0-None Auditory Disturbances: 0-None Visual Disturbances: 0-None Headache: 0-None Present CIWA-Ar Total Score: 10 BHS Progress Note (SOAP) Subjective: Sweating, Anxious. Objective: PATIENT A & O X 3, OBSERVED AMBULATING ON DETOX UNIT UNASSISTED. IN NO ACUTE DISTRESS. 05/09/19 18:15 Vital Signs Temperature 97.7 F 05/09/19 17:02 Pulse Rate 62 05/09/19 17:02 Respiratory Rate 16 05/09/19 17:02 Blood Pressure 101/66 05/09/19 17:02 O2 Sat by Pulse Oximetry (%) Laboratory Tests 05/08/19 05/08/19 05/08/19 07:15 07:15 07:15 WBC 5.8 RBC 4.47 Hgb 13.4 Hct 41.2 MCV 92.1 MCH 30.1 MCHC 32.7 RDW 13.4 Plt Count 275 D MPV 9.7 Sodium 140 Potassium 4.6 Chloride 105 Carbon Dioxide 32 Anion Gap 4 L BUN 10.6 Creatinine 0.9 Est GFR (CKD-EPI)AfAm 123.39 Est GFR (CKD-EPI)NonAf 106.46 Random Glucose 74 Calcium 9.1 Total Bilirubin 0.3 AST 14 L ALT 24 Alkaline Phosphatase 68 Total Protein 7.2 Albumin 4.0 RPR Titer Nonreactive LABS NOTED. Assessment: 05/09/19 18:15 WITHDRAWAL SYMPTOMS. Plan: CONTINUE DETOX. PATIENT SCHEDULED FOR D/C FROM DETOX UNIT TOMORROW.
[2019-05-09] MEDS: THIAMINE HCL 100 MG TABLET (FP) PO SCH (21:42)
[2019-05-09] MEDS: MIRTAZAPINE 15 MG TABLET (FP) PO SCH (21:42)
[2019-05-10] MEDS: METHADONE HCL 40 MG DISPERSABLE TABLET PO SCH (05:15)
[2019-05-10] MEDS ORDERED: diazePAM 5 MG TABLET PO ONE (06:00)
--- NOTE | 2019-05-10 08:51 | DS ---
[facility] Detox Discharge Summary Admission Date: 05/07/19 Discharge Date: 05/10/19 - History Present History: Alcohol Dependence, Cannabis Dependence, Sedative Dependence, MMTP - Physical Exam Results Vital Signs: Vital Signs Temperature 97.7 F 05/10/19 06:06 Pulse Rate 55 L 05/10/19 06:06 Respiratory Rate 16 05/10/19 06:06 Blood Pressure 98/65 05/10/19 06:06 O2 Sat by Pulse Oximetry (%) - Treatment Hospital Course: Detox Protocol Followed, Detoxed Safely, Responded well, Discharged Condition Good - Medication Discharge Medications: Ambulatory Orders Gabapentin [Neurontin] 300 mg PO TID 03/31/19 Mirtazapine [Remeron -] 15 mg PO HS 03/31/19 Sertraline HCl [Zoloft -] 50 mg PO DAILY 03/31/19 Quetiapine Fumarate [Seroquel -] 50 mg PO HS 04/08/19 Methadone [Dolophine -] 40 mg PO DAILY 05/07/19 - Diagnosis (1) Chronic viral hepatitis C Current Visit: Yes Status: Chronic Qualifiers: Hepatic coma status: without hepatic coma Qualified Code(s): B18.2 - Chronic viral hepatitis C (2) Cocaine dependence Current Visit: Yes Status: Chronic Qualifiers: Substance use status: uncomplicated Qualified Code(s): F14.20 - Cocaine dependence, uncomplicated (3) Constipation Current Visit: Yes Status: Chronic Qualifiers: Constipation type: drug induced constipation Qualified Code(s): K59.03 - Drug induced constipation (4) Methadone maintenance therapy patient Current Visit: Yes Status: Chronic (5) Nicotine dependence Current Visit: Yes Status: Chronic Qualifiers: Nicotine product type: cigarettes Substance use status: in withdrawal Qualified Code(s): F17.213 - Nicotine dependence, cigarettes, with withdrawal (6) Sedative, hypnotic or anxiolytic abuse, uncomplicated Current Visit: Yes Status: Chronic (7) Alcohol dependence with uncomplicated withdrawal Current Visit: No Status: Acute - AMA Did Patient Leave Against Medical Advice: No
[2019-05-10 09:11] VITALS: BP 115/79; PULSE 73; TEMP 97.1
[2019-05-10] MEDS ORDERED: FAMOTIDINE 20 MG TABLET PO SCH (10:00)
[2019-05-10] MEDS: PRENATAL VITAMINS W/ FOLIC ACID TABLET (FP) PO SCH (10:29)
[2019-05-10] MEDS: SERTRALINE HCL 50 MG TABLET (FP) PO SCH (10:31)
[2019-05-10] MEDS: NICOTINE 14 MG/24 HOURS TOPICAL PATCH TD SCH (10:31)
[2019-05-10] MEDS: QUEtiapine FUMARATE 50 MG TABLET PO SCH (10:31)
[2019-05-10] MEDS: POLYETHYLENE GLYCOL 3350 119 GM BTL PO SCH (11:19)
== END 2019-05-10 13:50 | disposition other institution (70) | DRG 773 ==
LOC: YASAS 08:45 → Y3N 13:51
PROVIDERS: ADMIT Allergy & Immunology; ATTEND Allergy & Immunology
PROC: HZ2ZZZZ Detoxification Services for Substance Abuse Treatment (ICD-10-PCS; principal; 2019-05-07)
DX: F10.230 Alcohol dependence with withdrawal, uncomplicated (principal); F11.20 Opioid dependence, uncomplicated; F13.20 Sedative, hypnotic or anxiolytic dependence, uncomplicated; F14.20 Cocaine dependence, uncomplicated; F12.20 Cannabis dependence, uncomplicated; F17.210 Nicotine dependence, cigarettes, uncomplicated; F19.282 Other psychoactive substance dependence with psychoactive substance-induced sleep disorder; F31.9 Bipolar disorder, unspecified; F20.9 Schizophrenia, unspecified; B18.2 Chronic viral hepatitis C; Z86.69 Personal history of other diseases of the nervous system and sense organs
CPT/HCPCS: 36415; 80053; 85027; 86593; J0475

== ENCOUNTER 2019-05-10 12:35 | Inpatient (IN) | payer OTHER ==
[2019-05-10] MEDS ORDERED: IBUPROFEN 400 MG TABLET (FP) PO PRN (14:55)
[2019-05-10] MEDS ORDERED: guaiFENesin 200 MG/10 ML 10 ML UNIT-DOSE CUPS PO PRN (14:55)
[2019-05-10] MEDS ORDERED: P-EPHED 60MG/TRIPROLIDI 2.5MG TABLET PO PRN (14:55)
[2019-05-10] MEDS ORDERED: MAGNESIUM CITRATE 300 ML BOTTLE PO PRN (14:55)
[2019-05-10] MEDS ORDERED: MENTHOL/PHENOL 1 EACH UD MM PRN (14:55)
[2019-05-10] MEDS ORDERED: ACETAMINOPHEN 325 MG TABLET (FP) PO PRN (14:55)
[2019-05-10] MEDS ORDERED: MAGNESIUM HYDROX 2400MG/30ML ORAL SUSPENSION 30 ML CUP PO PRN (14:55)
[2019-05-10] MEDS ORDERED: NICOTINE POLACRILEX 4 MG GUM BUC PRN (14:55)
[2019-05-10] MEDS ORDERED: LOPERAMIDE HCL 2 MG CAPSULE PO PRN (14:55)
[2019-05-10] MEDS ORDERED: COLLOIDAL OATMEAL 1 BAR EACH TP PRN (14:59)
[2019-05-10] MEDS: GABAPENTIN 300 MG CAPSULE (FP) PO SCH (21:21)
[2019-05-10] MEDS: MIRTAZAPINE 15 MG TABLET (FP) PO SCH (21:21)
[2019-05-10] MEDS: THIAMINE HCL 100 MG TABLET (FP) PO SCH (21:22)
[2019-05-10] MEDS: QUEtiapine FUMARATE 50 MG TABLET PO SCH (21:22)
[2019-05-11] MEDS: GABAPENTIN 300 MG CAPSULE (FP) PO SCH ×3 (07:01→21:46)
[2019-05-11] MEDS: SERTRALINE HCL 50 MG TABLET (FP) PO SCH (09:08)
[2019-05-11] MEDS: PRENATAL VITAMINS W/ FOLIC ACID TABLET (FP) PO SCH (09:08)
[2019-05-11] MEDS: QUEtiapine FUMARATE 50 MG TABLET PO SCH ×2 (09:08→21:46)
[2019-05-11] MEDS: NICOTINE 21 MG/24 HOURS TOPICAL PATCH TD SCH (09:09)
[2019-05-11] MEDS ORDERED: METHADONE HCL 40 MG DISPERSABLE TABLET PO SCH (10:00)
[2019-05-11] MEDS: HYDROCORTISONE 1% TOPICAL CREAM 30 GM TUBE TP PRN (13:23)
[2019-05-11] MEDS: hydrOXYzine PAMOATE 25 MG CAPSULE (FP) PO PRN ×2 (17:03→21:46)
[2019-05-11] MEDS: THIAMINE HCL 100 MG TABLET (FP) PO SCH (21:46)
[2019-05-11] MEDS: DOCUSATE SODIUM 100 MG CAPSULE (FP) PO SCH (21:46)
[2019-05-11] MEDS: MIRTAZAPINE 15 MG TABLET (FP) PO SCH (21:46)
[2019-05-11] MEDS: MAG HYDROX/AL HYDROX/SIMETH 30 ML UNIT-DOSE CUP PO PRN (21:48)
[2019-05-12] MEDS: METHADONE HCL 40 MG DISPERSABLE TABLET PO SCH (06:09)
[2019-05-12] MEDS: DOCUSATE SODIUM 100 MG CAPSULE (FP) PO SCH ×3 (06:09→21:31)
[2019-05-12] MEDS: GABAPENTIN 300 MG CAPSULE (FP) PO SCH ×3 (06:09→21:31)
[2019-05-12] MEDS: SERTRALINE HCL 50 MG TABLET (FP) PO SCH (10:34)
[2019-05-12] MEDS: PRENATAL VITAMINS W/ FOLIC ACID TABLET (FP) PO SCH (10:34)
[2019-05-12] MEDS: QUEtiapine FUMARATE 50 MG TABLET PO SCH ×2 (10:34→21:31)
[2019-05-12] MEDS: NICOTINE 21 MG/24 HOURS TOPICAL PATCH TD SCH (10:35)
[2019-05-12] MEDS: HYDROCORTISONE 1% TOPICAL CREAM 30 GM TUBE TP PRN (10:36)
[2019-05-12] MEDS: MIRTAZAPINE 15 MG TABLET (FP) PO SCH (21:31)
[2019-05-12] MEDS: THIAMINE HCL 100 MG TABLET (FP) PO SCH (21:31)
[2019-05-12] MEDS: MAG HYDROX/AL HYDROX/SIMETH 30 ML UNIT-DOSE CUP PO PRN (21:32)
[2019-05-12] MEDS: MELATONIN 5 MG TABLETS PO PRN (21:33)
[2019-05-13] MEDS: GABAPENTIN 300 MG CAPSULE (FP) PO SCH ×3 (05:59→21:17)
[2019-05-13] MEDS: DOCUSATE SODIUM 100 MG CAPSULE (FP) PO SCH ×3 (05:59→21:16)
[2019-05-13] MEDS: METHADONE HCL 40 MG DISPERSABLE TABLET PO SCH (06:02)
[2019-05-13] MEDS: QUEtiapine FUMARATE 50 MG TABLET PO SCH ×2 (11:02→21:16)
[2019-05-13] MEDS: SERTRALINE HCL 50 MG TABLET (FP) PO SCH (11:02)
[2019-05-13] MEDS: NICOTINE 21 MG/24 HOURS TOPICAL PATCH TD SCH (11:03)
[2019-05-13] MEDS: PRENATAL VITAMINS W/ FOLIC ACID TABLET (FP) PO SCH (11:03)
[2019-05-13] MEDS: hydrOXYzine PAMOATE 25 MG CAPSULE (FP) PO PRN (18:20)
[2019-05-13] MEDS: THIAMINE HCL 100 MG TABLET (FP) PO SCH (21:15)
[2019-05-13] MEDS: MELATONIN 5 MG TABLETS PO PRN (21:16)
[2019-05-13] MEDS: MIRTAZAPINE 15 MG TABLET (FP) PO SCH (21:16)
[2019-05-14] MEDS: DOCUSATE SODIUM 100 MG CAPSULE (FP) PO SCH ×3 (06:29→21:37)
[2019-05-14] MEDS: GABAPENTIN 300 MG CAPSULE (FP) PO SCH ×3 (06:29→21:37)
[2019-05-14] MEDS: METHADONE HCL 40 MG DISPERSABLE TABLET PO SCH (06:30)
[2019-05-14] MEDS: NICOTINE 21 MG/24 HOURS TOPICAL PATCH TD SCH (10:04)
[2019-05-14] MEDS: PRENATAL VITAMINS W/ FOLIC ACID TABLET (FP) PO SCH (10:05)
[2019-05-14] MEDS: QUEtiapine FUMARATE 50 MG TABLET PO SCH ×2 (10:05→21:37)
[2019-05-14] MEDS: HYDROCORTISONE 1% TOPICAL CREAM 30 GM TUBE TP PRN (10:05)
[2019-05-14] MEDS: SERTRALINE HCL 50 MG TABLET (FP) PO SCH (10:05)
[2019-05-14] MEDS: hydrOXYzine PAMOATE 25 MG CAPSULE (FP) PO PRN (14:07)
[2019-05-14] MEDS: THIAMINE HCL 100 MG TABLET (FP) PO SCH (21:37)
[2019-05-14] MEDS: MIRTAZAPINE 15 MG TABLET (FP) PO SCH (21:37)
[2019-05-15] MEDS: METHADONE HCL 40 MG DISPERSABLE TABLET PO SCH (06:18)
[2019-05-15] MEDS: GABAPENTIN 300 MG CAPSULE (FP) PO SCH ×3 (06:19→21:36)
[2019-05-15] MEDS: DOCUSATE SODIUM 100 MG CAPSULE (FP) PO SCH ×3 (06:19→21:36)
[2019-05-15] MEDS: PRENATAL VITAMINS W/ FOLIC ACID TABLET (FP) PO SCH (10:24)
[2019-05-15] MEDS: QUEtiapine FUMARATE 50 MG TABLET PO SCH ×2 (10:24→21:36)
[2019-05-15] MEDS: SERTRALINE HCL 50 MG TABLET (FP) PO SCH (10:25)
[2019-05-15] MEDS: NICOTINE 21 MG/24 HOURS TOPICAL PATCH TD SCH (10:25)
--- NOTE | 2019-05-15 12:07 | CONSULT ---
[facility] Psychiatric Consult - Data Date of interview: 05/15/19 Admission source: [facility]N Identifying data: Mr Delatorre is a 38 years old single male, father of 2 children, unemployed receiving SSI, domiciled seeking detox treatment for alcohol, opioid, cocaine, benzodiazepine , cannbis and phencyclidine Substance Abuse History: Reports history of alcohol, opioid, cocaine, xanax, marijuana and pcp use. Refer to addiction counselor's summary for further information Medical History: Significant for hepatitis C, GERD, cirrhosis of the liver and surgery for kidney stones. Patient is on methadone 40 mg/day from Smokes 5 cigarettes daily Psychiatric History: Patient was reently seen by YOLANDA Weber on 05/08/19 while in detox. Historical narrative remains consistent. Patient's first psychiatric contact was at 5 years of age after exhibiting hyperactivity and difficulty focusing. He was diagnosed with ADHD and started on psychotropic medications and psychotherapy. Treatment was discontinued after two years. His next psychiatric contact was as an adult when he became paranoid thinking that people want to kill him and believing that FBI was after him. He was then diagnosed with Paranoid Schizophrenia and started on antipsychotic medication. Reports previous psychiatric hospitalizations at [facility], [facility] (during incarceration in [facility]). Reportedly he cut his nipples while incarcerated because they looked abnormal but denies it being a suicide attempt. He reports that he currently sees a psychiatrist for medication management at the [facility] outpatient program in [facility] and reports being prescribed Zoloft 50mg, Mirtazapine 30mg HS, and Seroquel 50mg BID. When seen by YOLANDA weber on Zoloft 50 mg po daily, Remeron 15 mg po HS and Seroquel 50 mg po BID. At present, denies experiencing psychotic symptoms, S/H ideations. However, reports feeling mildly anxious and sleeping poorly. Requests that Remeron dosage be increased back to 30 mg/hs Physical/Sexual Abuse/Trauma History: Reorts being bullied as a child Mental Status Exam - Mental Status Exam Alert and Oriented to: Time, Place, Person Cognitive Function: Fair Patient Appearance: Well Groomed Mood: Anxious (mildly) Affect: Appropriate Patient Behavior: Cooperative Speech Pattern: Clear Voice Loudness: Normal Thought Process: Intact Hallucinations: Denies Suicidal Ideation: Denies Homicidal Ideation: Denies Insight/Judgement: Poor Sleep: Poorly Appetite: Good Muscle strength/Tone: Normal Gait/Station: Normal Psychiatric Findings - Problem List ([place] 1, 2,3) (1) ADHD (attention deficit hyperactivity disorder) Current Visit: Yes Status: Chronic (2) Chronic paranoid schizophrenia Current Visit: Yes Status: Chronic (3) Substance-induced anxiety disorder Current Visit: Yes Status: Acute (4) Substance-induced sleep disorder Current Visit: Yes Status: Acute (5) Alcohol dependence Current Visit: Yes Status: Acute (6) Cocaine dependence Current Visit: No Status: Acute Qualifiers: Substance use status: uncomplicated Qualified Code(s): F14.20 - Cocaine dependence, uncomplicated (7) Substance-induced sleep disorder Current Visit: No Status: Acute (8) Sedative, hypnotic or anxiolytic abuse Current Visit: Yes Status: Acute (9) Opioid dependence on agonist therapy Current Visit: Yes Status: Chronic (10) Nicotine dependence Current Visit: No Status: Chronic Qualifiers: Nicotine product type: cigarettes Substance use status: in withdrawal Qualified Code(s): F17.213 - Nicotine dependence, cigarettes, with withdrawal (11) Chronic viral hepatitis C Current Visit: No Status: Chronic Qualifiers: Hepatic coma status: without hepatic coma Qualified Code(s): B18.2 - Chronic viral hepatitis C Comment: untreated (12) History of seizure Current Visit: No Status: Resolved - Initial Treatment Plan Initial Treatment Plan: 1) Continue Zoloft 50 mg po daily and Seroquel 50 mg po BID. 2) Discontinue Remeron 15 mg po HS. 3) Start remeron 30 mg po HS. 4) Continue inpatient rehabilitation
[2019-05-15] MEDS: hydrOXYzine PAMOATE 50 MG CAPSULE (FP) PO PRN (14:07)
[2019-05-15] MEDS: THIAMINE HCL 100 MG TABLET (FP) PO SCH (21:36)
[2019-05-15] MEDS: MIRTAZAPINE 30 MG TABLET (FP) PO SCH (21:38)
[2019-05-16] MEDS: GABAPENTIN 300 MG CAPSULE (FP) PO SCH ×3 (07:10→21:35)
[2019-05-16] MEDS: DOCUSATE SODIUM 100 MG CAPSULE (FP) PO SCH ×3 (07:10→21:35)
[2019-05-16] MEDS: METHADONE HCL 40 MG DISPERSABLE TABLET PO SCH (07:10)
[2019-05-16] MEDS: PRENATAL VITAMINS W/ FOLIC ACID TABLET (FP) PO SCH (10:50)
[2019-05-16] MEDS: SERTRALINE HCL 50 MG TABLET (FP) PO SCH (10:50)
[2019-05-16] MEDS: NICOTINE 21 MG/24 HOURS TOPICAL PATCH TD SCH (10:50)
[2019-05-16] MEDS: QUEtiapine FUMARATE 50 MG TABLET PO SCH ×2 (10:50→21:37)
[2019-05-16] MEDS: hydrOXYzine PAMOATE 50 MG CAPSULE (FP) PO PRN (12:47)
[2019-05-16] MEDS: MIRTAZAPINE 30 MG TABLET (FP) PO SCH (21:35)
[2019-05-16] MEDS: MELATONIN 5 MG TABLETS PO PRN (21:36)
[2019-05-16] MEDS: THIAMINE HCL 100 MG TABLET (FP) PO SCH (21:36)
[2019-05-17] MEDS: GABAPENTIN 300 MG CAPSULE (FP) PO SCH ×3 (06:28→22:07)
[2019-05-17] MEDS: METHADONE HCL 40 MG DISPERSABLE TABLET PO SCH (06:28)
[2019-05-17] MEDS: DOCUSATE SODIUM 100 MG CAPSULE (FP) PO SCH ×3 (06:28→22:06)
[2019-05-17] MEDS: hydrOXYzine PAMOATE 50 MG CAPSULE (FP) PO PRN (10:37)
[2019-05-17] MEDS: SERTRALINE HCL 50 MG TABLET (FP) PO SCH (10:37)
[2019-05-17] MEDS: NICOTINE 21 MG/24 HOURS TOPICAL PATCH TD SCH (10:38)
[2019-05-17] MEDS: PRENATAL VITAMINS W/ FOLIC ACID TABLET (FP) PO SCH (10:38)
[2019-05-17] MEDS: QUEtiapine FUMARATE 50 MG TABLET PO SCH ×2 (10:38→22:06)
[2019-05-17] MEDS: HYDROCORTISONE 1% TOPICAL CREAM 30 GM TUBE TP PRN (14:07)
[2019-05-17] MEDS: MIRTAZAPINE 30 MG TABLET (FP) PO SCH (22:06)
[2019-05-17] MEDS: MELATONIN 5 MG TABLETS PO PRN (22:07)
[2019-05-17] MEDS: THIAMINE HCL 100 MG TABLET (FP) PO SCH (22:07)
[2019-05-18] MEDS: GABAPENTIN 300 MG CAPSULE (FP) PO SCH ×3 (06:46→21:38)
[2019-05-18] MEDS: DOCUSATE SODIUM 100 MG CAPSULE (FP) PO SCH ×3 (06:46→21:38)
[2019-05-18] MEDS: METHADONE HCL 10 MG TABLET PO SCH (07:35)
[2019-05-18] MEDS: PRENATAL VITAMINS W/ FOLIC ACID TABLET (FP) PO SCH (11:10)
[2019-05-18] MEDS: NICOTINE 21 MG/24 HOURS TOPICAL PATCH TD SCH (11:10)
[2019-05-18] MEDS: SERTRALINE HCL 50 MG TABLET (FP) PO SCH (11:10)
[2019-05-18] MEDS: hydrOXYzine PAMOATE 50 MG CAPSULE (FP) PO PRN (11:10)
[2019-05-18] MEDS: QUEtiapine FUMARATE 50 MG TABLET PO SCH ×2 (11:10→21:39)
[2019-05-18] MEDS: THIAMINE HCL 100 MG TABLET (FP) PO SCH (21:39)
[2019-05-18] MEDS: MELATONIN 5 MG TABLETS PO PRN (21:39)
[2019-05-18] MEDS: MIRTAZAPINE 30 MG TABLET (FP) PO SCH (21:39)
[2019-05-19] MEDS: GABAPENTIN 300 MG CAPSULE (FP) PO SCH ×3 (06:24→21:53)
[2019-05-19] MEDS: METHADONE HCL 10 MG TABLET PO SCH (06:24)
[2019-05-19] MEDS: DOCUSATE SODIUM 100 MG CAPSULE (FP) PO SCH ×3 (06:24→21:53)
[2019-05-19] MEDS: QUEtiapine FUMARATE 50 MG TABLET PO SCH ×2 (10:47→21:53)
[2019-05-19] MEDS: PRENATAL VITAMINS W/ FOLIC ACID TABLET (FP) PO SCH (10:47)
[2019-05-19] MEDS: hydrOXYzine PAMOATE 50 MG CAPSULE (FP) PO PRN (10:47)
[2019-05-19] MEDS: SERTRALINE HCL 50 MG TABLET (FP) PO SCH (10:47)
[2019-05-19] MEDS: NICOTINE 21 MG/24 HOURS TOPICAL PATCH TD SCH (10:48)
--- NOTE | 2019-05-19 12:04 | PN ---
S Progress Note Note: Pt requesting "dandruff shampoo for chronic itchy and scaly hair condition". Vital Signs - 24 hr 05/19/19 05/19/19 05/19/19 00:30 03:30 07:24 Temperature 97.9 F Pulse Rate 52 L Respiratory 18 18 18 Rate Blood Pressure 115/75 Head:Normocephalic,atruamatic,with dry flaky, white, scaly debris throughout hair. Scalp slightly red. No swelling. A/P Dx:Sebhorrheic dermatitis Selsun lotion 2.5% as directed
[2019-05-19] MEDS: SELENIUM SULFIDE 2.5% LOTION 4 OZ. TP SCH (14:33)
[2019-05-19] MEDS: MIRTAZAPINE 30 MG TABLET (FP) PO SCH (21:53)
[2019-05-19] MEDS: THIAMINE HCL 100 MG TABLET (FP) PO SCH (21:54)
[2019-05-19] MEDS: MELATONIN 5 MG TABLETS PO PRN (21:54)
[2019-05-20] MEDS: DOCUSATE SODIUM 100 MG CAPSULE (FP) PO SCH ×3 (06:46→21:03)
[2019-05-20] MEDS: GABAPENTIN 300 MG CAPSULE (FP) PO SCH ×3 (06:46→21:03)
[2019-05-20] MEDS: METHADONE HCL 10 MG TABLET PO SCH (06:47)
[2019-05-20] MEDS: SERTRALINE HCL 50 MG TABLET (FP) PO SCH (11:01)
[2019-05-20] MEDS: PRENATAL VITAMINS W/ FOLIC ACID TABLET (FP) PO SCH (11:01)
[2019-05-20] MEDS: QUEtiapine FUMARATE 50 MG TABLET PO SCH ×2 (11:01→21:03)
[2019-05-20] MEDS: NICOTINE 21 MG/24 HOURS TOPICAL PATCH TD SCH (11:02)
[2019-05-20] MEDS: hydrOXYzine PAMOATE 50 MG CAPSULE (FP) PO PRN (11:02)
[2019-05-20] MEDS: SELENIUM SULFIDE 2.5% LOTION 4 OZ. TP SCH (11:02)
[2019-05-20] MEDS: HYDROCORTISONE 1% TOPICAL CREAM 30 GM TUBE TP PRN (11:04)
[2019-05-20] MEDS: THIAMINE HCL 100 MG TABLET (FP) PO SCH (21:03)
[2019-05-20] MEDS: MIRTAZAPINE 30 MG TABLET (FP) PO SCH (21:03)
[2019-05-20] MEDS: MELATONIN 5 MG TABLETS PO PRN (21:04)
[2019-05-21] MEDS: METHADONE HCL 10 MG TABLET PO SCH (06:42)
[2019-05-21] MEDS: GABAPENTIN 300 MG CAPSULE (FP) PO SCH ×3 (06:42→21:16)
[2019-05-21] MEDS: DOCUSATE SODIUM 100 MG CAPSULE (FP) PO SCH ×3 (06:42→21:16)
[2019-05-21] MEDS: SELENIUM SULFIDE 2.5% LOTION 4 OZ. TP SCH (10:07)
[2019-05-21] MEDS: SERTRALINE HCL 50 MG TABLET (FP) PO SCH (10:07)
[2019-05-21] MEDS: QUEtiapine FUMARATE 50 MG TABLET PO SCH ×2 (10:07→21:16)
[2019-05-21] MEDS: PRENATAL VITAMINS W/ FOLIC ACID TABLET (FP) PO SCH (10:07)
[2019-05-21] MEDS: NICOTINE 21 MG/24 HOURS TOPICAL PATCH TD SCH (10:07)
[2019-05-21] MEDS: MIRTAZAPINE 30 MG TABLET (FP) PO SCH (21:16)
[2019-05-21] MEDS: MELATONIN 5 MG TABLETS PO PRN (21:16)
[2019-05-21] MEDS: THIAMINE HCL 100 MG TABLET (FP) PO SCH (21:17)
[2019-05-22] MEDS: METHADONE HCL 10 MG TABLET PO SCH (06:26)
[2019-05-22] MEDS: GABAPENTIN 300 MG CAPSULE (FP) PO SCH ×3 (06:26→21:35)
[2019-05-22] MEDS: DOCUSATE SODIUM 100 MG CAPSULE (FP) PO SCH ×3 (07:51→21:35)
[2019-05-22] MEDS: NICOTINE 21 MG/24 HOURS TOPICAL PATCH TD SCH (10:36)
[2019-05-22] MEDS: SELENIUM SULFIDE 2.5% LOTION 4 OZ. TP SCH (10:36)
[2019-05-22] MEDS: PRENATAL VITAMINS W/ FOLIC ACID TABLET (FP) PO SCH (10:37)
[2019-05-22] MEDS: QUEtiapine FUMARATE 50 MG TABLET PO SCH ×2 (10:37→21:36)
[2019-05-22] MEDS: HYDROCORTISONE 1% TOPICAL CREAM 30 GM TUBE TP PRN (10:38)
[2019-05-22] MEDS: SERTRALINE HCL 50 MG TABLET (FP) PO SCH (10:38)
[2019-05-22] MEDS: MIRTAZAPINE 30 MG TABLET (FP) PO SCH (21:36)
[2019-05-22] MEDS: THIAMINE HCL 100 MG TABLET (FP) PO SCH (21:36)
[2019-05-22] MEDS: MELATONIN 5 MG TABLETS PO PRN (21:36)
[2019-05-23] MEDS: METHADONE HCL 10 MG TABLET PO SCH (06:33)
[2019-05-23] MEDS: GABAPENTIN 300 MG CAPSULE (FP) PO SCH (06:34)
[2019-05-23] MEDS: DOCUSATE SODIUM 100 MG CAPSULE (FP) PO SCH (07:00)
[2019-05-23 07:21] VITALS: BP 115/77; PULSE 53; TEMP 98
[2019-05-23] MEDS: SERTRALINE HCL 50 MG TABLET (FP) PO SCH (10:32)
[2019-05-23] MEDS: SELENIUM SULFIDE 2.5% LOTION 4 OZ. TP SCH (10:32)
[2019-05-23] MEDS: PRENATAL VITAMINS W/ FOLIC ACID TABLET (FP) PO SCH (10:32)
[2019-05-23] MEDS: NICOTINE 21 MG/24 HOURS TOPICAL PATCH TD SCH (10:32)
[2019-05-23] MEDS: QUEtiapine FUMARATE 50 MG TABLET PO SCH (10:32)
--- NOTE | 2019-05-23 14:50 | DS ---
[facility] Rehab Discharge Summary - [facility] Rehab Discharge Summary Admission Date: 05/10/19 Discharge Date: 05/23/19 - History Present History: Alcohol dependence, Cocaine dependence, MMTP, Sedative dependence Additional Comments: Pt is a 38 y/o male with a hx of SURJIT admitted to rehab after detox treatment and requested early discharge today stating to check up on his housing arrangement. pt met with his counselor, Ms Rylie Shrestha and has been referred back to [facility] Methadone program. Pt reports comprehensive services of primary care, CD and mental health management at this location. Pertinent Past History: Hx of Seizures(drug withdrawal related) Hep C ADHD - Discharge Physical Exam Vital Signs: Vital Signs Temperature 98.0 F 05/23/19 07:18 Pulse Rate 53 L 05/23/19 07:18 Respiratory Rate 18 05/23/19 07:18 Blood Pressure 115/77 05/23/19 07:18 O2 Sat by Pulse Oximetry (%) Alert o x 3 nad oob with steady gait cardiac:s1 s2,rrr lungs:cta,christophe. abdomen:soft,+bs,nt,nd-flat extremities/skin:no edema,full ROM,skin intact, tattoos bilaterally on lower legs. Pertinent Admission Physical Exam Findings: Unremarkable - Treatment Discharge Condition: Discharge condition good Hospital Course: rehabilitated safely and responded well CD aftercare referral accepted - Medication Discharge Medications: Ambulatory Orders Gabapentin [Neurontin] 300 mg PO TID 03/31/19 Mirtazapine [Remeron -] 15 mg PO HS 03/31/19 Sertraline HCl [Zoloft -] 50 mg PO DAILY 03/31/19 Quetiapine Fumarate [Seroquel -] 50 mg PO BID 04/08/19 Methadone [Dolophine -] 40 mg PO DAILY 05/07/19 - Medication-Assisted Treatment (MAT) Medication-Assisted Treatment (MAT): No - Discharge Instructions Diet, activity, other medical instructions: Diet:Regular Activity:oob with steady gait Other medical instructions:Follow up with [facility] Treatment programs for MMTP/primary care and Mental Health management as scheduled. - Diagnosis (1) Alcohol dependence Status: Chronic Qualifiers: Substance use status: uncomplicated Qualified Code(s): F10.20 - Alcohol dependence, uncomplicated (2) Cocaine dependence Status: Chronic Qualifiers: Substance use status: uncomplicated Qualified Code(s): F14.20 - Cocaine dependence, uncomplicated (3) Cannabis dependence Status: Chronic (4) Chronic viral hepatitis C Status: Chronic Qualifiers: Hepatic coma status: without hepatic coma Qualified Code(s): B18.2 - Chronic viral hepatitis C (5) Methadone maintenance therapy patient Status: Chronic (6) Nicotine dependence Status: Chronic Qualifiers: Nicotine product type: cigarettes Substance use status: in withdrawal Qualified Code(s): F17.213 - Nicotine dependence, cigarettes, with withdrawal (7) History of seizure Status: Suspected - AMA Did Patient Leave Against Medical Advice: No Additional Comments: Pt states will follow up with his primary care providers for medical management.
== END 2019-05-23 11:25 | disposition home or self-care (01) | DRG 772 ==
LOC: YASAS 12:35 → Y5N 12:36
PROVIDERS: ADMIT Neuromusculoskeletal Medicine & OMM; ATTEND Neuromusculoskeletal Medicine & OMM
PROC: HZ42ZZZ Group Counseling for Substance Abuse Treatment, Cognitive-Behavioral (ICD-10-PCS; principal; 2019-05-10)
DX: F10.20 Alcohol dependence, uncomplicated (principal); F11.20 Opioid dependence, uncomplicated; F13.20 Sedative, hypnotic or anxiolytic dependence, uncomplicated; F14.20 Cocaine dependence, uncomplicated; F12.20 Cannabis dependence, uncomplicated; F17.210 Nicotine dependence, cigarettes, uncomplicated; F90.9 Attention-deficit hyperactivity disorder, unspecified type; F20.0 Paranoid schizophrenia; F19.280 Other psychoactive substance dependence with psychoactive substance-induced anxiety disorder; F19.282 Other psychoactive substance dependence with psychoactive substance-induced sleep disorder; B18.2 Chronic viral hepatitis C; L21.9 Seborrheic dermatitis, unspecified; K21.9 Gastro-esophageal reflux disease without esophagitis; K74.60 Unspecified cirrhosis of liver; Z86.69 Personal history of other diseases of the nervous system and sense organs

== ENCOUNTER 2019-06-28 12:07 | Inpatient (IN) | payer OTHER ==
[2019-06-28 13:07] VITALS: BMI 25.5
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
[2019-06-28] MEDS ORDERED: MAGNESIUM HYDROX 2400MG/30ML ORAL SUSPENSION 30 ML CUP PO PRN (16:38)
[2019-06-28] MEDS ORDERED: MAGNESIUM CITRATE 300 ML BOTTLE PO PRN (16:38)
[2019-06-28] MEDS ORDERED: BISMUTH SUBSALICYLATE 524 MG/30 ML UD PO PRN (16:38)
[2019-06-28] MEDS ORDERED: IBUPROFEN 400 MG TABLET (FP) PO PRN (16:38)
[2019-06-28] MEDS ORDERED: hydrOXYzine PAMOATE 25 MG CAPSULE (FP) PO PRN (16:38)
[2019-06-28] MEDS ORDERED: ACETAMINOPHEN 325 MG TABLET (FP) PO PRN ×2 (16:38)
[2019-06-28] MEDS ORDERED: METHOCARBAMOL 500 MG TABLET PO PRN (16:38)
[2019-06-28] MEDS ORDERED: NICOTINE POLACRILEX 2 MG GUM BUC PRN (16:38)
[2019-06-28] MEDS: diazePAM 5 MG TABLET PO PRN (17:24)
[2019-06-28] MEDS: MAG HYDROX/AL HYDROX/SIMETH 30 ML UNIT-DOSE CUP PO PRN (17:24)
[2019-06-28] MEDS: MENTHOL/PHENOL 1 EACH UD MM PRN (17:25)
[2019-06-28] MEDS: diazePAM 5 MG TABLET PO SCH ×2 (17:31→21:31)
--- NOTE | 2019-06-28 17:33 | PN ---
Teaching Attending Note Name of Resident: Lynn Hill ATTENDING PHYSICIAN STATEMENT I saw and evaluated the patient. I reviewed the resident's note and discussed the case with the resident. I agree with the resident's findings and plan as documented. SUBJECTIVE:pt here requesting detox from alcohol and benzodiazepine use , claims since the age of 10 , 1/2 pint vodka , 2-3 beers and benzodiazepines since 14 yrs of age , 2-3 klonopin/ day . On MMTP 60 mg , MDD 150 mg "years ago " on parole referred by MMTP 2/2 ongoing etoh use and illicit benzo while in program This report was requested by: Kiara Brooks | Reference #: [id number] Others' Prescriptions Patient Name: Evgeny Delatorre Date: 1980 Address: [address] [place] [address] Sex: Male Rx Written Rx Dispensed Drug Quantity Days Supply Prescriber Name 04/22/2019 04/24/2019 buprenorphine-naloxone 8-2 mg sl film 90 30 Fany Ramos MD 03/01/2019 03/02/2019 buprenorphine-naloxone 8-2 mg sl film 90 30 Fany Ramos MD 01/31/2019 02/01/2019 buprenorphine-naloxone 8-2 mg sl film 90 30 Fany Ramos MD 12/08/2018 12/09/2018 buprenorphine-naloxone 8-2 mg sl tablet 90 30 Fany Ramos MD 10/06/2018 10/07/2018 buprenorphine-naloxone 8-2 mg sl tablet 90 30 Fany Ramos MD OBJECTIVE: wnwd Vital Signs - 24 hr 06/28/19 12:55 Temperature 97.0 F L Pulse Rate 66 Respiratory 18 Rate Blood Pressure 120/60 ASSESSMENT AND PLAN: Opioid dependence on agonist therapy Alcohol use d/o / Sedative abuse - Valium detox
[2019-06-28] MEDS: THIAMINE HCL 100 MG TABLET (FP) PO SCH (21:31)
[2019-06-28] MEDS: GABAPENTIN 300 MG CAPSULE (FP) PO SCH (21:32)
[2019-06-28] MEDS: MIRTAZAPINE 15 MG TABLET (FP) PO SCH (21:32)
[2019-06-28] MEDS: MELATONIN 5 MG TABLETS PO PRN (21:32)
[2019-06-29] MEDS ORDERED: METHADONE HCL 10 MG TABLET ONE (04:44)
[2019-06-29] MEDS ORDERED: METHADONE HCL 40 MG DISPERSABLE TABLET ONE (04:44)
[2019-06-29] MEDS: METHADONE 40 MG, METHADONE 20 MG PO SCH (05:55)
[2019-06-29] MEDS: GABAPENTIN 300 MG CAPSULE (FP) PO SCH ×3 (05:55→21:49)
[2019-06-29] MEDS: diazePAM 5 MG TABLET PO SCH ×3 (05:55→21:49)
[2019-06-29] MEDS ORDERED: METHADONE HCL 10 MG TABLET PO SCH (06:00)
[2019-06-29] MEDS: diazePAM 5 MG TABLET PO PRN ×2 (10:09→17:58)
[2019-06-29] MEDS: PRENATAL VITAMINS W/ FOLIC ACID TABLET (FP) PO SCH (10:09)
[2019-06-29] MEDS: SELENIUM SULFIDE 2.25% 180 ML SHAMPOO TP SCH (10:09)
[2019-06-29] MEDS: NICOTINE 14 MG/24 HOURS TOPICAL PATCH TD SCH (10:10)
[2019-06-29 10:33] LABS: HEMATOCRIT 41.2 % (35.4-49); HEMOGLOBIN 13.6 GM/dL (11.7-16.9); MCH 30.4 pg (25.7-33.7); MEAN CELL VOLUME 92.3 fl (80-96); MEAN PLT VOLUME 9.4 fl (7.5-11.1); PLATELET COUNT 235 K/MM3 (134-434); RBC 4.47 M/mm3 (4.00-5.60); RDW 13.8 % (11.9-15.9); WHITE BLOOD COUNT 6.9 K/mm3 (4.0-10.0)
[2019-06-29 10:36] LABS: ALBUMIN 3.7 g/dl (3.4-5.0); BILIRUBIN,TOTAL 0.2 mg/dL (0.2-1); BLOOD UREA NITROGEN 10.3 mg/dL (7-18); CALCIUM 9.2 mg/dL (8.5-10.1); CREATININE 0.9 mg/dL (0.55-1.3); POTASSIUM 4.5 mmol/L (3.5-5.1); TOT PROT 6.9 g/dl (6.4-8.2)
[2019-06-29] MEDS: MENTHOL/PHENOL 1 EACH UD MM PRN (11:31)
--- NOTE | 2019-06-29 12:56 | PN ---
S CIWA - CIWA Score Nausea/Vomitin-Mild Nausea/No Vomiting Muscle Tremors: 3 Anxiety: 2 Agitation: 2 Paroxysmal Sweats: 1-Minimal Palms Moist Orientation: 1-Uncertain about Date Tacttile Disturbances: 1-Very Mild Itch/Numbness Auditory Disturbances: 0-None Visual Disturbances: 0-None Headache: 1-Very Mild CIWA-Ar Total Score: 12 [facility] Progress Note (SOAP) Subjective: 38 years old male admitted on 06/28/19 for alcohol and benzo withdrawal sx management treated with valium detox regimen ate breakfast and lunch ambulating on hallway social with peers in day room received methadone 60 mg po today feeling better Objective: 06/29/19 12:55 Vital Signs Temperature 97.3 F L 06/29/19 09:12 Pulse Rate 68 06/29/19 09:12 Respiratory Rate 18 06/29/19 09:12 Blood Pressure 97/63 06/29/19 09:12 O2 Sat by Pulse Oximetry (%) Laboratory Last Values WBC 6.9 K/mm3 (4.0-10.0) 06/29/19 08:00 RBC 4.47 M/mm3 (4.00-5.60) 06/29/19 08:00 Hgb 13.6 GM/dL (11.7-16.9) 06/29/19 08:00 Hct 41.2 % (35.4-49) 06/29/19 08:00 MCV 92.3 fl (80-96) 06/29/19 08:00 MCH 30.4 pg (25.7-33.7) 06/29/19 08:00 MCHC 33.0 g/dl (32.0-35.9) 06/29/19 08:00 RDW 13.8 % (11.9-15.9) 06/29/19 08:00 Plt Count 235 K/MM3 (134-434) 06/29/19 08:00 MPV 9.4 fl (7.5-11.1) 06/29/19 08:00 Sodium 142 mmol/L (136-145) 06/29/19 08:00 Potassium 4.5 mmol/L (3.5-5.1) 06/29/19 08:00 Chloride 107 mmol/L (98-107) 06/29/19 08:00 Carbon Dioxide 30 mmol/L (21-32) 06/29/19 08:00 Anion Gap 4 MMOL/L (8-16) L 06/29/19 08:00 BUN 10.3 mg/dL (7-18) 06/29/19 08:00 Creatinine 0.9 mg/dL (0.55-1.3) 06/29/19 08:00 Est GFR (CKD-EPI)AfAm 123.39 06/29/19 08:00 Est GFR (CKD-EPI)NonAf 106.46 06/29/19 08:00 Random Glucose 77 mg/dL (74-106) 06/29/19 08:00 Calcium 9.2 mg/dL (8.5-10.1) 06/29/19 08:00 Total Bilirubin 0.2 mg/dL (0.2-1) 06/29/19 08:00 AST 12 U/L (15-37) L 06/29/19 08:00 ALT 21 U/L (13-61) 06/29/19 08:00 Alkaline Phosphatase 69 U/L (45-117) 06/29/19 08:00 Total Protein 6.9 g/dl (6.4-8.2) 06/29/19 08:00 Albumin 3.7 g/dl (3.4-5.0) 06/29/19 08:00 lab noted Assessment: 06/29/19 12:55 alcohol and benzo withdrawal sx Plan: continue valium detox regimen
--- NOTE | 2019-06-29 15:52 | CONSULT ---
[facility] Psychiatric Consult - Data Date of interview: 06/29/19 Admission source: [facility] Identifying data: Readmission to [facility] for this 38 y/o male self- referred for detoxification (SURJIT issues : phencyclidine, benzodiazepine, cannabis, nicotine, alcohol, heroin, cocaine). Interviewed at [address] [place] [address]. Patient is , father of two, domiciled, unemployed and supported on SSI benefits. Substance Abuse History: Discussed with the patient. Details in current [facility] report as follows : Smoking history: Current every day smoker. Have you smoked in the past 12 months: Yes. Aproximately how many cigarettes per day: 5. Cigars Per Day: 0. Hx Chewing Tobacco Use: No. Initiated information on smoking cessation: Yes. 'Breaking Loose' booklet given: 06/28/19. - Substances abused. Alcohol. Substance route: Oral. Frequency: Daily. Amount used: 1/2 pint -1pint of Nydia Russell. Age of first use: 10. Date of last use: 06/28/19. PCP. Substance route: Smoking. Frequency: 1-2 times per week. Amount used: 2-3 pulls. Age of first use: 21. Date of last use: 09/14. Heroin. Substance route: Injection. Frequency: 1-2 times per week. Amount used: 1 to 2 bags. Age of first use: 16. Date of last use: 06/26/19. Cocaine. Substance route: Inhalation. Frequency: 1-3 times last 30 days. Amount used: 2 bag. Age of first use: 16. Date of last use: 06/21/19. Alprazolam (Xanax). Other (specify): 2mg. Substance route: Oral. Frequency: Daily. Amount used: 4 bars. Age of first use: 16. Date of last use: . Marijuana/Hashish. Substance route: Smoking. Frequency: Daily. Amount used: 1 bag. Age of first use: 10. Date of last use: 06/28/19. Benzodiazepine (Klonopin). Substance route: Oral. Frequency: Daily. Amount used: 16. Age of first use: 10. Date of last use: 06/28/19 Medical History: Medical profile is remarkable for hepatitis C, GERD, cirrhosis of the liver, lithotripsy and a history of withdrawal-related seizures. Psychiatric History: Onset of psychiatric disturbances : age 5 (ADHD). Patient endorses history of " more than 10 " psychiatric hospitalizations. Mr Delatorre is known to [facility] and [facility] ( during incarceration in [facility]). Has been diagnosed with Schizophrenia + MDD. Patient is currently on methadone maintenance (60 mg/day) at the [facility] MMTP program in [facility] where he is also followed, by a psychiatrist, for medication management. Distant history of one suicide attempt via self- mutilation (cutting both nipples while in alf). Physical/Sexual Abuse/Trauma History: Not discussed. Patient declines. Additional Comment: Urine drug screen results: THC-Marijuana, FEN-Fentanyl, MOP- Opiates, MTD-Methadone. Noted. Mental Status Exam - Mental Status Exam Alert and Oriented to: Time, Place, Person Cognitive Function: Good Patient Appearance: Unkempt, Disheveled Mood: Hostile, Irritable Affect: Mood Congruent, Constricted Patient Behavior: Fatigued, Guarded Speech Pattern: Clear Voice Loudness: Normal Thought Process: Goal Oriented Hallucinations: Denies Suicidal Ideation: Denies Homicidal Ideation: Denies Insight/Judgement: Poor Sleep: Well Appetite: Good Muscle strength/Tone: Normal Gait/Station: Normal Psychiatric Findings - Problem List ([place] 1, 2,3) (1) Alcohol dependence with uncomplicated withdrawal Current Visit: Yes Status: Acute (2) Opioid dependence on agonist therapy Current Visit: Yes Status: Chronic (3) Cannabis dependence Current Visit: Yes Status: Chronic (4) Cocaine dependence Current Visit: Yes Status: Chronic Qualifiers: Substance use status: uncomplicated Qualified Code(s): F14.20 - Cocaine dependence, uncomplicated (5) Nicotine dependence Current Visit: Yes Status: Chronic Qualifiers: Nicotine product type: cigarettes Substance use status: in withdrawal Qualified Code(s): F17.213 - Nicotine dependence, cigarettes, with withdrawal (6) Sedative, hypnotic or anxiolytic abuse, uncomplicated Current Visit: Yes Status: Chronic (7) Substance induced mood disorder Current Visit: Yes Status: Chronic (8) History of schizoaffective disorder Current Visit: Yes Status: Chronic Comment: Self-report. (9) Insomnia Current Visit: Yes Status: Chronic - Initial Treatment Plan Initial Treatment Plan: Psychoeducation. Sleep hygiene. Detoxification. AA/NA meetings. Medications resumed as : seroquel 50 mg po hs + remeron 15 mg po hs + zoloft 50 mg po daily. Side effects/benefits of these medications are discussed with patient. Mr Delatorre is in agreement with this plan of care. Observation.
[2019-06-29] MEDS: THIAMINE HCL 100 MG TABLET (FP) PO SCH (21:49)
[2019-06-29] MEDS: MIRTAZAPINE 15 MG TABLET (FP) PO SCH (21:49)
[2019-06-29] MEDS: MELATONIN 5 MG TABLETS PO PRN (21:49)
[2019-06-29] MEDS: QUEtiapine FUMARATE 50 MG TABLET PO SCH (21:49)
[2019-06-30] MEDS ORDERED: METHADONE HCL 10 MG TABLET ONE (04:01)
[2019-06-30] MEDS ORDERED: METHADONE HCL 40 MG DISPERSABLE TABLET ONE (04:01)
[2019-06-30] MEDS: diazePAM 5 MG TABLET PO SCH ×2 (05:37→17:39)
[2019-06-30] MEDS: METHADONE 40 MG, METHADONE 20 MG PO SCH (05:37)
[2019-06-30] MEDS: GABAPENTIN 300 MG CAPSULE (FP) PO SCH ×3 (05:37→21:50)
[2019-06-30] MEDS: MAG HYDROX/AL HYDROX/SIMETH 30 ML UNIT-DOSE CUP PO PRN (07:49)
[2019-06-30] MEDS: MENTHOL/PHENOL 1 EACH UD MM PRN (07:49)
[2019-06-30] MEDS: PRENATAL VITAMINS W/ FOLIC ACID TABLET (FP) PO SCH (10:02)
[2019-06-30] MEDS: SERTRALINE HCL 50 MG TABLET (FP) PO SCH (10:02)
[2019-06-30] MEDS: NICOTINE 14 MG/24 HOURS TOPICAL PATCH TD SCH (10:02)
[2019-06-30] MEDS: SELENIUM SULFIDE 2.25% 180 ML SHAMPOO TP SCH (10:02)
[2019-06-30] MEDS: diazePAM 5 MG TABLET PO PRN ×3 (10:03→21:50)
--- NOTE | 2019-06-30 10:10 | PN ---
[facility] CIWA - CIWA Score Nausea/Vomitin-Mild Nausea/No Vomiting Muscle Tremors: 2 Anxiety: 2 Agitation: 1-Slight > Activity Paroxysmal Sweats: 1-Minimal Palms Moist Orientation: 0-Oriented Tacttile Disturbances: 0-None Auditory Disturbances: 0-None Visual Disturbances: 0-None Headache: 0-None Present CIWA-Ar Total Score: 7 S Progress Note (SOAP) Subjective: 38 years old male admitted on 06/28/19 for alcohol and benzo withdrawal sx management treated with valium detox regimen receiving methadone 60 mg po daily feeling better today less tremor mild anxiety Objective: 06/30/19 10:09 Vital Signs Temperature 96.0 F L 06/30/19 09:04 Pulse Rate 54 L 06/30/19 09:04 Respiratory Rate 16 06/30/19 09:04 Blood Pressure 102/67 06/30/19 09:04 O2 Sat by Pulse Oximetry (%) Laboratory Last Values WBC 6.9 K/mm3 (4.0-10.0) 06/29/19 08:00 RBC 4.47 M/mm3 (4.00-5.60) 06/29/19 08:00 Hgb 13.6 GM/dL (11.7-16.9) 06/29/19 08:00 Hct 41.2 % (35.4-49) 06/29/19 08:00 MCV 92.3 fl (80-96) 06/29/19 08:00 MCH 30.4 pg (25.7-33.7) 06/29/19 08:00 MCHC 33.0 g/dl (32.0-35.9) 06/29/19 08:00 RDW 13.8 % (11.9-15.9) 06/29/19 08:00 Plt Count 235 K/MM3 (134-434) 06/29/19 08:00 MPV 9.4 fl (7.5-11.1) 06/29/19 08:00 Sodium 142 mmol/L (136-145) 06/29/19 08:00 Potassium 4.5 mmol/L (3.5-5.1) 06/29/19 08:00 Chloride 107 mmol/L (98-107) 06/29/19 08:00 Carbon Dioxide 30 mmol/L (21-32) 06/29/19 08:00 Anion Gap 4 MMOL/L (8-16) L 06/29/19 08:00 BUN 10.3 mg/dL (7-18) 06/29/19 08:00 Creatinine 0.9 mg/dL (0.55-1.3) 06/29/19 08:00 Est GFR (CKD-EPI)AfAm 123.39 06/29/19 08:00 Est GFR (CKD-EPI)NonAf 106.46 06/29/19 08:00 Random Glucose 77 mg/dL (74-106) 06/29/19 08:00 Calcium 9.2 mg/dL (8.5-10.1) 06/29/19 08:00 Total Bilirubin 0.2 mg/dL (0.2-1) 06/29/19 08:00 AST 12 U/L (15-37) L 06/29/19 08:00 ALT 21 U/L (13-61) 06/29/19 08:00 Alkaline Phosphatase 69 U/L (45-117) 06/29/19 08:00 Total Protein 6.9 g/dl (6.4-8.2) 06/29/19 08:00 Albumin 3.7 g/dl (3.4-5.0) 06/29/19 08:00 lab noted Assessment: 06/30/19 10:09 alcohol and benzo withdrawal sx Plan: valium detox regimen
[2019-06-30] MEDS: MELATONIN 5 MG TABLETS PO PRN (21:50)
[2019-06-30] MEDS: MIRTAZAPINE 15 MG TABLET (FP) PO SCH (21:50)
[2019-06-30] MEDS: QUEtiapine FUMARATE 50 MG TABLET PO SCH (21:50)
[2019-06-30] MEDS: THIAMINE HCL 100 MG TABLET (FP) PO SCH (21:50)
[2019-07-01] MEDS ORDERED: METHADONE HCL 40 MG DISPERSABLE TABLET ONE (04:35)
[2019-07-01] MEDS ORDERED: METHADONE HCL 10 MG TABLET ONE (04:35)
[2019-07-01] MEDS: METHADONE 40 MG, METHADONE 20 MG PO SCH (05:09)
[2019-07-01] MEDS: GABAPENTIN 300 MG CAPSULE (FP) PO SCH ×2 (05:10→13:20)
[2019-07-01] MEDS ORDERED: diazePAM 5 MG TABLET PO ONE (06:00)
[2019-07-01 09:22] VITALS: BP 113/74; PULSE 55; TEMP 97.3
--- NOTE | 2019-07-01 09:59 | PN ---
S CIWA - CIWA Score Nausea/Vomitin-No Nausea/No Vomiting Muscle Tremors: None Anxiety: 3 Agitation: 0-Normal Activity Paroxysmal Sweats: 1-Minimal Palms Moist Orientation: 0-Oriented Tacttile Disturbances: 0-None Auditory Disturbances: 0-None Visual Disturbances: 0-None Headache: 0-None Present CIWA-Ar Total Score: 4 [facility] Progress Note (SOAP) Subjective: Patient c/o of feeling anxious and interrupted sleep . Reports hx of hemorrhoids tx with Colace TI and anusol TP MI Objective: 07/01/19 14:40 Vital Signs Temperature 97.3 F L 07/01/19 09:22 Pulse Rate 55 L 07/01/19 09:22 Respiratory Rate 18 07/01/19 09:22 Blood Pressure 113/74 07/01/19 09:22 O2 Sat by Pulse Oximetry (%) Laboratory Last Values WBC 6.9 K/mm3 (4.0-10.0) 06/29/19 08:00 RBC 4.47 M/mm3 (4.00-5.60) 06/29/19 08:00 Hgb 13.6 GM/dL (11.7-16.9) 06/29/19 08:00 Hct 41.2 % (35.4-49) 06/29/19 08:00 MCV 92.3 fl (80-96) 06/29/19 08:00 MCH 30.4 pg (25.7-33.7) 06/29/19 08:00 MCHC 33.0 g/dl (32.0-35.9) 06/29/19 08:00 RDW 13.8 % (11.9-15.9) 06/29/19 08:00 Plt Count 235 K/MM3 (134-434) 06/29/19 08:00 MPV 9.4 fl (7.5-11.1) 06/29/19 08:00 Sodium 142 mmol/L (136-145) 06/29/19 08:00 Potassium 4.5 mmol/L (3.5-5.1) 06/29/19 08:00 Chloride 107 mmol/L (98-107) 06/29/19 08:00 Carbon Dioxide 30 mmol/L (21-32) 06/29/19 08:00 Anion Gap 4 MMOL/L (8-16) L 06/29/19 08:00 BUN 10.3 mg/dL (7-18) 06/29/19 08:00 Creatinine 0.9 mg/dL (0.55-1.3) 06/29/19 08:00 Est GFR (CKD-EPI)AfAm 123.39 06/29/19 08:00 Est GFR (CKD-EPI)NonAf 106.46 06/29/19 08:00 Random Glucose 77 mg/dL (74-106) 06/29/19 08:00 Calcium 9.2 mg/dL (8.5-10.1) 06/29/19 08:00 Total Bilirubin 0.2 mg/dL (0.2-1) 06/29/19 08:00 AST 12 U/L (15-37) L 06/29/19 08:00 ALT 21 U/L (13-61) 06/29/19 08:00 Alkaline Phosphatase 69 U/L (45-117) 06/29/19 08:00 Total Protein 6.9 g/dl (6.4-8.2) 06/29/19 08:00 Albumin 3.7 g/dl (3.4-5.0) 06/29/19 08:00 Assessment: 07/01/19 14:41 Aox3 no acute distress full ROM no gait disturbance ambulating in the unit Plan: anusol for hemorrhoids colace tid increase po fluids continue to monitor
[2019-07-01] MEDS: PRENATAL VITAMINS W/ FOLIC ACID TABLET (FP) PO SCH (10:03)
[2019-07-01] MEDS: SERTRALINE HCL 50 MG TABLET (FP) PO SCH (10:04)
[2019-07-01] MEDS: NICOTINE 14 MG/24 HOURS TOPICAL PATCH TD SCH (10:04)
[2019-07-01] MEDS ORDERED: cloNIDine HCL 0.1 MG TABLET PO ONE (10:04)
[2019-07-01] MEDS: SELENIUM SULFIDE 2.25% 180 ML SHAMPOO TP SCH (10:06)
--- NOTE | 2019-07-01 10:10 | DS ---
[facility] Detox Discharge Summary Admission Date: 06/28/19 Discharge Date: 07/01/19 - History Present History: Alcohol Dependence, Cocaine Dependence, MMTP Additional Comments: PATIENT TOLERATED DETOX WELL. PATIENT TO FOLLOW UP WITH PRIMARY CARE PROVIDER UPON DISCHARGE. PATIENT TO FOLLOW UP WITH NEXT LEVEL OF CARE AT [facility]. - Physical Exam Results Vital Signs: Vital Signs Temperature 97.3 F L 07/01/19 09:22 Pulse Rate 55 L 07/01/19 09:22 Respiratory Rate 18 07/01/19 09:22 Blood Pressure 113/74 07/01/19 09:22 O2 Sat by Pulse Oximetry (%) Pertinent Admission Physical Exam Findings: PATIENT AOX3 NO ACUTE DISTRESS EENT WNL + MULTIPLE FACIAL TATTOO NO ADVENTITIOUS BREATH SOUNDS FULL ROM NO GAIT DISTURBANCE - Treatment Hospital Course: Detox Protocol Followed, Detoxed Safely, Responded well, Discharged Condition Good, Rehab Referral Accepted Patient has Accepted a Rehab Referral to: [facility] - Medication Discharge Medications: Ambulatory Orders Gabapentin [Neurontin] 300 mg PO TID 03/31/19 Mirtazapine [Remeron -] 15 mg PO HS 03/31/19 Sertraline HCl [Zoloft -] 50 mg PO DAILY 03/31/19 Quetiapine Fumarate [Seroquel -] 50 mg PO HS 04/08/19 Docusate Sodium [Colace -] 100 mg PO TID 07/01/19 Hydrocortisone 2.5% Topical Cr [Anusol-Hc -] 1 applic RI DAILY 07/01/19 Methadone [Dolophine -] 60 mg PO DAILY 07/01/19 - Diagnosis (1) Alcohol dependence with uncomplicated withdrawal Status: Acute (2) Sedative, hypnotic or anxiolytic abuse Status: Acute (3) Chronic viral hepatitis C Status: Chronic Qualifiers: Hepatic coma status: without hepatic coma Qualified Code(s): B18.2 - Chronic viral hepatitis C (4) Cocaine dependence Status: Chronic Qualifiers: Substance use status: uncomplicated Qualified Code(s): F14.20 - Cocaine dependence, uncomplicated (5) Methadone maintenance therapy patient Status: Chronic (6) Nicotine dependence Status: Chronic Qualifiers: Nicotine product type: cigarettes Substance use status: in withdrawal Qualified Code(s): F17.213 - Nicotine dependence, cigarettes, with withdrawal - AMA Did Patient Leave Against Medical Advice: No
[2019-07-01] MEDS ORDERED: HYDROCORTISONE 2.5% TOPICAL CREAM 30 GM TUBE PR SCH (11:00)
[2019-07-01] MEDS ORDERED: DOCUSATE SODIUM 100 MG CAPSULE (FP) PO SCH (14:00)
== END 2019-07-01 13:28 | disposition other institution (70) | DRG 773 ==
LOC: YASAS 12:07 → Y3N 16:58
PROVIDERS: ADMIT Allergy & Immunology; ATTEND Allergy & Immunology
PROC: HZ2ZZZZ Detoxification Services for Substance Abuse Treatment (ICD-10-PCS; principal; 2019-06-28)
DX: F10.230 Alcohol dependence with withdrawal, uncomplicated (principal); F11.20 Opioid dependence, uncomplicated; F13.230 Sedative, hypnotic or anxiolytic dependence with withdrawal, uncomplicated; F14.20 Cocaine dependence, uncomplicated; F16.20 Hallucinogen dependence, uncomplicated; F12.20 Cannabis dependence, uncomplicated; F17.213 Nicotine dependence, cigarettes, with withdrawal; F31.9 Bipolar disorder, unspecified; F25.9 Schizoaffective disorder, unspecified; F90.9 Attention-deficit hyperactivity disorder, unspecified type; G40.509 Epileptic seizures related to external causes, not intractable, without status epilepticus; G47.00 Insomnia, unspecified; K21.9 Gastro-esophageal reflux disease without esophagitis; K74.60 Unspecified cirrhosis of liver; B18.2 Chronic viral hepatitis C; Z91.5 Personal history of self-harm
CPT/HCPCS: 36415; 80053; 85027; J0735

== ENCOUNTER 2019-07-01 13:39 | Inpatient (IN) | payer OTHER ==
--- NOTE | 2019-07-01 11:38 | HP ---
[facility] Rehab Assess/Revision - Admission History Admitted to Rehab from[facility] - Findings Detox History & Physical reviewed: Yes Concur with findings: Yes Inpatient Rehab Admission - Rehab Decision to Admit Inpatient rehab admission?: Yes - Initial Determination Are CD services needed?: Yes Free of communicable disease: Yes Not in need of hospitalization: Yes - Rehab Admission Criteria Previous failed treatment: Yes Poor recovery environment: Yes Comorbidities: Yes Lacks judgement: Yes Patient is meeting Inpatient Rehab admission criteria:: Yes
[~2019-07-01 13:39] MED LIST: ACETAMINOPHEN 325 MG TABLET (FP) PO PRN; IBUPROFEN 400 MG TABLET (FP) PO PRN; LOPERAMIDE HCL 2 MG CAPSULE PO PRN; MAGNESIUM CITRATE 300 ML BOTTLE PO PRN; MAGNESIUM HYDROX 2400MG/30ML ORAL SUSPENSION 30 ML CUP PO PRN; MENTHOL/PHENOL 1 EACH UD MM PRN; NICOTINE POLACRILEX 2 MG GUM BUC PRN; P-EPHED 60MG/TRIPROLIDI 2.5MG TABLET PO PRN; guaiFENesin 200 MG/10 ML 10 ML UNIT-DOSE CUPS PO PRN; hydrOXYzine PAMOATE 25 MG CAPSULE (FP) PO PRN
--- NOTE | 2019-07-01 15:25 | PN ---
[facility] Progress Note Note: Pt is a 38 y/o male with a hx of SURJIT admitted to rehab from detox [facility] [place]. Alert o x 3. Nad. To f/u with psych consult.
[2019-07-01] MEDS: MAG HYDROX/AL HYDROX/SIMETH 30 ML UNIT-DOSE CUP PO PRN (20:06)
[2019-07-01] MEDS: MIRTAZAPINE 15 MG TABLET (FP) PO SCH (21:47)
[2019-07-01] MEDS: THIAMINE HCL 100 MG TABLET (FP) PO SCH (21:47)
[2019-07-01] MEDS: GABAPENTIN 300 MG CAPSULE (FP) PO SCH (21:47)
[2019-07-01] MEDS: DOCUSATE SODIUM 100 MG CAPSULE (FP) PO SCH (21:47)
[2019-07-01] MEDS: MELATONIN 5 MG TABLETS PO PRN (21:49)
[2019-07-02] MEDS ORDERED: METHADONE HCL 10 MG TABLET PO SCH (06:00)
[2019-07-02] MEDS ORDERED: METHADONE HCL 10 MG TABLET ONE (06:06)
[2019-07-02] MEDS: METHADONE 40 MG, METHADONE 20 MG PO SCH (06:06)
[2019-07-02] MEDS ORDERED: METHADONE HCL 40 MG DISPERSABLE TABLET ONE (06:06)
[2019-07-02] MEDS: GABAPENTIN 300 MG CAPSULE (FP) PO SCH ×3 (06:07→21:37)
[2019-07-02] MEDS: DOCUSATE SODIUM 100 MG CAPSULE (FP) PO SCH ×3 (06:07→21:37)
[2019-07-02] MEDS: PRENATAL VITAMINS W/ FOLIC ACID TABLET (FP) PO SCH (10:39)
[2019-07-02] MEDS: SELENIUM SULFIDE 2.5% LOTION 4 OZ. TP SCH (10:40)
[2019-07-02] MEDS: NICOTINE 14 MG/24 HOURS TOPICAL PATCH TD SCH (10:40)
[2019-07-02] MEDS: HYDROCORTISONE 2.5% TOPICAL CREAM 30 GM TUBE TP SCH (10:41)
--- NOTE | 2019-07-02 14:23 | CONSULT ---
[facility] Psychiatric Consult - Data Date of interview: 07/02/19 Admission source: [facility] Identifying data: Transition to rehabilitative care at [address] for this 38 y/o male who completed detoxification treatment at [address] [place] [address]. Mr Juan Ramon continues to address his issues of SURJIT (phencyclidine, benzodiazepine, cannabis, nicotine, alcohol, heroin, cocaine) co-morbid with substance induced mood disorder + schizophrenia. Patient is , father of two, domiciled, unemployed and supported on SSI benefits. Substance Abuse History: Discussed with the patient. Details in current [facility] report as follows : Smoking history: Current every day smoker. Have you smoked in the past 12 months: Yes. Aproximately how many cigarettes per day: 5. Cigars Per Day: 0. Hx Chewing Tobacco Use: No. Initiated information on smoking cessation: Yes. 'Breaking Loose' booklet given: 06/28/19. - Substances abused. Alcohol. Substance route: Oral. Frequency: Daily. Amount used: 1/2 pint -1pint of Nydia Russell. Age of first use: 10. Date of last use: 06/28/19. PCP. Substance route: Smoking. Frequency: 1-2 times per week. Amount used: 2-3 pulls. Age of first use: 21. Date of last use: 09/14. Heroin. Substance route: Injection. Frequency: 1-2 times per week. Amount used: 1 to 2 bags. Age of first use: 16. Date of last use: 06/26/19. Cocaine. Substance route: Inhalation. Frequency: 1-3 times last 30 days. Amount used: 2 bag. Age of first use: 16. Date of last use: 06/21/19. Alprazolam (Xanax). Other (specify): 2mg. Substance route: Oral. Frequency: Daily. Amount used: 4 bars. Age of first use: 16. Date of last use: . Marijuana/Hashish. Substance route: Smoking. Frequency: Daily. Amount used: 1 bag. Age of first use: 10. Date of last use: 06/28/19. Benzodiazepine (Klonopin). Substance route: Oral. Frequency: Daily. Amount used: 16. Age of first use: 10. Date of last use: 06/28/19 Medical History: Medical profile is remarkable for hepatitis C, GERD, cirrhosis of the liver, lithotripsy and a history of withdrawal-related seizures. Psychiatric History: Onset of psychiatric disturbances : age 5 (ADHD). Patient endorses history of " more than 10 " psychiatric hospitalizations. Mr Delatorre is known to [facility] and [facility] ( during incarceration in [facility]). Has been diagnosed with Schizophrenia + MDD. Patient is currently on methadone maintenance (60 mg/day) at the [facility] M[facility] program in [facility] where he is also followed, by a psychiatrist, for medication management. Distant history of one suicide attempt via self- mutilation (cutting both nipples while in shelter). Physical/Sexual Abuse/Trauma History: No history reported. Patient declines discussion. Additional Comment: Urine drug screen results: THC-Marijuana, FEN-Fentanyl, MOP- Opiates, MTD-Methadone. Noted. Psychiatric Findings - Problem List ([place] 1, 2,3) (1) Alcohol dependence Current Visit: Yes Status: Chronic Qualifiers: Substance use status: uncomplicated Qualified Code(s): F10.20 - Alcohol dependence, uncomplicated (2) Opioid dependence on agonist therapy Current Visit: Yes Status: Chronic (3) Sedative, hypnotic or anxiolytic abuse Current Visit: Yes Status: Chronic (4) Cannabis dependence Current Visit: Yes Status: Chronic (5) Nicotine dependence Current Visit: Yes Status: Chronic Qualifiers: Nicotine product type: cigarettes Substance use status: in withdrawal Qualified Code(s): F17.213 - Nicotine dependence, cigarettes, with withdrawal (6) Substance induced mood disorder Current Visit: Yes Status: Chronic (7) Insomnia Current Visit: Yes Status: Chronic - Initial Treatment Plan Initial Treatment Plan: Psychoeducation. Support. AA/NA meetings. Motivational counseling. Medications resumed : seroquel 50 mg po bid (patient's request) + remeron 15 mg po hs + zoloft 50 mg po daily. Side effects/benefits of these drugs are discussed with the patient. Consent (verbal) given to MD. Quiñones.
[2019-07-02] MEDS: MIRTAZAPINE 15 MG TABLET (FP) PO SCH (21:37)
[2019-07-02] MEDS: QUEtiapine FUMARATE 50 MG TABLET PO SCH (21:37)
[2019-07-02] MEDS: MELATONIN 5 MG TABLETS PO PRN (21:38)
[2019-07-02] MEDS: THIAMINE HCL 100 MG TABLET (FP) PO SCH (21:38)
[2019-07-03] MEDS ORDERED: METHADONE HCL 10 MG TABLET ONE (06:01)
[2019-07-03] MEDS ORDERED: METHADONE HCL 40 MG DISPERSABLE TABLET ONE (06:01)
[2019-07-03] MEDS: METHADONE 40 MG, METHADONE 20 MG PO SCH (06:01)
[2019-07-03] MEDS: DOCUSATE SODIUM 100 MG CAPSULE (FP) PO SCH ×3 (06:02→21:29)
[2019-07-03] MEDS: GABAPENTIN 300 MG CAPSULE (FP) PO SCH ×3 (06:02→21:29)
[2019-07-03] MEDS: PRENATAL VITAMINS W/ FOLIC ACID TABLET (FP) PO SCH (10:30)
[2019-07-03] MEDS: NICOTINE 14 MG/24 HOURS TOPICAL PATCH TD SCH (10:30)
[2019-07-03] MEDS: SERTRALINE HCL 50 MG TABLET (FP) PO SCH (10:31)
[2019-07-03] MEDS: SELENIUM SULFIDE 2.5% LOTION 4 OZ. TP SCH (10:32)
[2019-07-03] MEDS: HYDROCORTISONE 2.5% TOPICAL CREAM 30 GM TUBE TP SCH (10:34)
[2019-07-03] MEDS: MAG HYDROX/AL HYDROX/SIMETH 30 ML UNIT-DOSE CUP PO PRN (12:20)
[2019-07-03] MEDS: MIRTAZAPINE 15 MG TABLET (FP) PO SCH (21:29)
[2019-07-03] MEDS: QUEtiapine FUMARATE 50 MG TABLET PO SCH (21:29)
[2019-07-03] MEDS: THIAMINE HCL 100 MG TABLET (FP) PO SCH (21:30)
[2019-07-04] MEDS ORDERED: METHADONE HCL 40 MG DISPERSABLE TABLET ONE (06:05)
[2019-07-04] MEDS ORDERED: METHADONE HCL 10 MG TABLET ONE (06:05)
[2019-07-04] MEDS: METHADONE 40 MG, METHADONE 20 MG PO SCH (06:06)
[2019-07-04] MEDS: DOCUSATE SODIUM 100 MG CAPSULE (FP) PO SCH ×3 (06:07→21:49)
[2019-07-04] MEDS: GABAPENTIN 300 MG CAPSULE (FP) PO SCH ×3 (06:07→21:49)
[2019-07-04] MEDS: NICOTINE 14 MG/24 HOURS TOPICAL PATCH TD SCH (10:15)
[2019-07-04] MEDS: SERTRALINE HCL 50 MG TABLET (FP) PO SCH (10:15)
[2019-07-04] MEDS: PRENATAL VITAMINS W/ FOLIC ACID TABLET (FP) PO SCH (10:15)
[2019-07-04] MEDS: HYDROCORTISONE 2.5% TOPICAL CREAM 30 GM TUBE TP SCH (10:16)
[2019-07-04] MEDS: SELENIUM SULFIDE 2.5% LOTION 4 OZ. TP SCH (10:17)
[2019-07-04] MEDS: MIRTAZAPINE 15 MG TABLET (FP) PO SCH (21:49)
[2019-07-04] MEDS: QUEtiapine FUMARATE 50 MG TABLET PO SCH (21:49)
[2019-07-04] MEDS: THIAMINE HCL 100 MG TABLET (FP) PO SCH (21:50)
[2019-07-05] MEDS ORDERED: METHADONE HCL 10 MG TABLET ONE (06:09)
[2019-07-05] MEDS ORDERED: METHADONE HCL 40 MG DISPERSABLE TABLET ONE (06:09)
[2019-07-05] MEDS: METHADONE 40 MG, METHADONE 20 MG PO SCH (06:09)
[2019-07-05] MEDS: DOCUSATE SODIUM 100 MG CAPSULE (FP) PO SCH ×3 (06:10→21:40)
[2019-07-05] MEDS: GABAPENTIN 300 MG CAPSULE (FP) PO SCH ×3 (06:10→21:40)
[2019-07-05] MEDS: PRENATAL VITAMINS W/ FOLIC ACID TABLET (FP) PO SCH (11:00)
[2019-07-05] MEDS: SERTRALINE HCL 50 MG TABLET (FP) PO SCH (11:00)
[2019-07-05] MEDS: NICOTINE 14 MG/24 HOURS TOPICAL PATCH TD SCH (11:01)
[2019-07-05] MEDS: SELENIUM SULFIDE 2.5% LOTION 4 OZ. TP SCH (11:01)
[2019-07-05] MEDS: HYDROCORTISONE 2.5% TOPICAL CREAM 30 GM TUBE TP SCH (11:01)
[2019-07-05] MEDS: MIRTAZAPINE 15 MG TABLET (FP) PO SCH (21:39)
[2019-07-05] MEDS: QUEtiapine FUMARATE 50 MG TABLET PO SCH (21:40)
[2019-07-05] MEDS: THIAMINE HCL 100 MG TABLET (FP) PO SCH (21:40)
[2019-07-06] MEDS ORDERED: METHADONE HCL 40 MG DISPERSABLE TABLET ONE (04:32)
[2019-07-06] MEDS ORDERED: METHADONE HCL 10 MG TABLET ONE (04:32)
[2019-07-06] MEDS: METHADONE 40 MG, METHADONE 20 MG PO SCH (06:13)
[2019-07-06] MEDS: DOCUSATE SODIUM 100 MG CAPSULE (FP) PO SCH ×3 (06:14→21:44)
[2019-07-06] MEDS: GABAPENTIN 300 MG CAPSULE (FP) PO SCH ×3 (06:14→21:44)
[2019-07-06] MEDS: SELENIUM SULFIDE 2.5% LOTION 4 OZ. TP SCH (10:05)
[2019-07-06] MEDS: NICOTINE 14 MG/24 HOURS TOPICAL PATCH TD SCH (10:06)
[2019-07-06] MEDS: PRENATAL VITAMINS W/ FOLIC ACID TABLET (FP) PO SCH (10:06)
[2019-07-06] MEDS: HYDROCORTISONE 2.5% TOPICAL CREAM 30 GM TUBE TP SCH (10:07)
[2019-07-06] MEDS: SERTRALINE HCL 50 MG TABLET (FP) PO SCH (10:07)
--- NOTE | 2019-07-06 10:09 | PN ---
[facility] Progress Note Note: pt c/o foot itching and cracked skin after taking a shower O: Vital Signs - 24 hr 07/06/19 07/06/19 00:30 07:01 Temperature 97.7 F Pulse Rate 57 L Respiratory 18 18 Rate Blood Pressure 121/68 peeling skin, minimal redness, no cellulitis a/p: tinea pedis anti-fungal cream
[2019-07-06] MEDS: CLOTRIMAZOLE 1% CREAM 15 GM TUBE TP SCH ×2 (11:30→21:44)
[2019-07-06] MEDS: QUEtiapine FUMARATE 50 MG TABLET PO SCH (21:43)
[2019-07-06] MEDS: MIRTAZAPINE 15 MG TABLET (FP) PO SCH (21:44)
[2019-07-06] MEDS: THIAMINE HCL 100 MG TABLET (FP) PO SCH (21:45)
[2019-07-07] MEDS ORDERED: METHADONE HCL 40 MG DISPERSABLE TABLET ONE (05:53)
[2019-07-07] MEDS ORDERED: METHADONE HCL 10 MG TABLET ONE (05:53)
[2019-07-07] MEDS: DOCUSATE SODIUM 100 MG CAPSULE (FP) PO SCH ×3 (06:28→21:26)
[2019-07-07] MEDS: METHADONE 40 MG, METHADONE 20 MG PO SCH (06:28)
[2019-07-07] MEDS: GABAPENTIN 300 MG CAPSULE (FP) PO SCH ×3 (06:28→21:27)
[2019-07-07] MEDS: PRENATAL VITAMINS W/ FOLIC ACID TABLET (FP) PO SCH (11:04)
[2019-07-07] MEDS: SERTRALINE HCL 50 MG TABLET (FP) PO SCH (11:05)
[2019-07-07] MEDS: CLOTRIMAZOLE 1% CREAM 15 GM TUBE TP SCH ×2 (11:05→21:26)
[2019-07-07] MEDS: NICOTINE 14 MG/24 HOURS TOPICAL PATCH TD SCH (11:06)
[2019-07-07] MEDS: HYDROCORTISONE 2.5% TOPICAL CREAM 30 GM TUBE TP SCH (11:07)
[2019-07-07] MEDS: SELENIUM SULFIDE 2.5% LOTION 4 OZ. TP SCH (11:07)
[2019-07-07] MEDS: QUEtiapine FUMARATE 50 MG TABLET PO SCH (21:27)
[2019-07-07] MEDS: MIRTAZAPINE 15 MG TABLET (FP) PO SCH (21:27)
[2019-07-07] MEDS: THIAMINE HCL 100 MG TABLET (FP) PO SCH (21:28)
[2019-07-08] MEDS: GABAPENTIN 300 MG CAPSULE (FP) PO SCH ×2 (06:40→13:16)
[2019-07-08] MEDS: DOCUSATE SODIUM 100 MG CAPSULE (FP) PO SCH ×2 (06:40→13:16)
[2019-07-08 06:57] VITALS: BP 120/78; PULSE 51; TEMP 97
[2019-07-08] MEDS ORDERED: METHADONE 40 MG, METHADONE 20 MG PO SCH (07:00)
[2019-07-08] MEDS ORDERED: METHADONE HCL 40 MG DISPERSABLE TABLET ONE (07:00)
[2019-07-08] MEDS ORDERED: METHADONE HCL 10 MG TABLET ONE (07:00)
[2019-07-08] MEDS ORDERED: METHADONE HCL 10 MG TABLET PO SCH (07:00)
[2019-07-08] MEDS: PRENATAL VITAMINS W/ FOLIC ACID TABLET (FP) PO SCH (10:31)
[2019-07-08] MEDS: SERTRALINE HCL 50 MG TABLET (FP) PO SCH (10:31)
[2019-07-08] MEDS: SELENIUM SULFIDE 2.5% LOTION 4 OZ. TP SCH (10:31)
[2019-07-08] MEDS: NICOTINE 14 MG/24 HOURS TOPICAL PATCH TD SCH (10:32)
[2019-07-08] MEDS: CLOTRIMAZOLE 1% CREAM 15 GM TUBE TP SCH (10:32)
[2019-07-08] MEDS: HYDROCORTISONE 2.5% TOPICAL CREAM 30 GM TUBE TP SCH (10:32)
--- NOTE | 2019-07-08 13:53 | DS ---
[facility] Rehab Discharge Summary - [facility] Rehab Discharge Summary Admission Date: 07/01/19 Discharge Date: 07/08/19 - History Present History: Alcohol dependence, Cannabis dependence, MMTP, Opioid dependence, PCP dependence, Sedative dependence - Discharge Physical Exam Vital Signs: Vital Signs Temperature 97.0 F L 07/08/19 06:57 Pulse Rate 51 L 07/08/19 06:57 Respiratory Rate 18 07/08/19 06:57 Blood Pressure 120/78 07/08/19 06:57 O2 Sat by Pulse Oximetry (%) Pertinent Admission Physical Exam Findings: 38 Y/O male with history of alcohol, benzos, heroin (on methadone), mariuana, cocaine and PCP use. Pt has been drinking since the age of 10 and using benzos since 14 yrs of age. Pt [facility] to [facility] with one resulting in head trauma requiring stitches. On MMTP at [facility]. Herion use via inhalation. Has hx of IVDA. Hx of OD x 2. - Treatment Discharge Condition: Discharge condition good Hospital Course: Patient requested to complete rehab stating " I have to go to [place] and just do my time". Patient stated he is pending incarceration and serving 4 months in halfway and would like to just get it over with. Patient attended group meetings , 1:1 sessions with counseling services and evaluated and treated by psychiatry team during admission. Patient is medically stable and denies SI/HI. Patient informed provider he does not need any medications sent to his pharmacy as he has at home and most likely will be incarcerated. Patient encouraged to continue with group meetings AA/NA to prevent relapse and to follow up with [facility] if he is not incarcerated. Vital Signs Temperature 97.0 F L 07/08/19 06:57 Pulse Rate 51 L 07/08/19 06:57 Respiratory Rate 18 07/08/19 06:57 Blood Pressure 120/78 07/08/19 06:57 O2 Sat by Pulse Oximetry (%) Ambulatory Orders Gabapentin [Neurontin] 300 mg PO TID 03/31/19 Mirtazapine [Remeron -] 15 mg PO HS 03/31/19 Sertraline HCl [Zoloft -] 50 mg PO DAILY 03/31/19 Quetiapine Fumarate [Seroquel -] 50 mg PO HS 04/08/19 Docusate Sodium [Colace -] 100 mg PO TID 07/01/19 Hydrocortisone 2.5% Topical Cr [Anusol-Hc -] 1 applic ID DAILY 07/01/19 Methadone [Dolophine -] 60 mg PO DAILY 07/01/19 Selenium Sulfide [Selsun 2.5% Lotion -] 1 applic TP DAILY 07/01/19 ROS: denies opiod/alcohol cravings, n/v/d and sweating PE: alert and oriented x 3 skin warm and dry +perrla, eoms intact bl in NAD ext full rom, amb ad keenan no tremors denies si/hi a/p: opiod/alcohol dependence medically stable for d/c - Medication Discharge Medications: Ambulatory Orders Gabapentin [Neurontin] 300 mg PO TID 03/31/19 Mirtazapine [Remeron -] 15 mg PO HS 03/31/19 Sertraline HCl [Zoloft -] 50 mg PO DAILY 03/31/19 Quetiapine Fumarate [Seroquel -] 50 mg PO HS 04/08/19 Docusate Sodium [Colace -] 100 mg PO TID 07/01/19 Hydrocortisone 2.5% Topical Cr [Anusol-Hc -] 1 applic ID DAILY 07/01/19 Methadone [Dolophine -] 60 mg PO DAILY 07/01/19 Selenium Sulfide [Selsun 2.5% Lotion -] 1 applic TP DAILY 07/01/19 - Medication-Assisted Treatment (MAT) Medication-Assisted Treatment (MAT): Yes MAT Follow-up Referral: MMTP at [facility] - Discharge Instructions Diet, activity, other medical instructions: Diet: reg as tolerated Activity: as tolerated Other medical instructions: follow up with PCP as recommended - Follow-up Referral Minutes to complete discharge: 30 - AMA Did Patient Leave Against Medical Advice: No
== END 2019-07-08 13:35 | disposition home or self-care (01) | DRG 772 ==
LOC: YASAS 13:39 → Y5N 13:44
PROVIDERS: ADMIT Neuromusculoskeletal Medicine & OMM; ATTEND Neuromusculoskeletal Medicine & OMM
PROC: HZ42ZZZ Group Counseling for Substance Abuse Treatment, Cognitive-Behavioral (ICD-10-PCS; principal; 2019-07-04)
DX: F10.20 Alcohol dependence, uncomplicated (principal); F11.20 Opioid dependence, uncomplicated; F13.20 Sedative, hypnotic or anxiolytic dependence, uncomplicated; F12.20 Cannabis dependence, uncomplicated; F17.213 Nicotine dependence, cigarettes, with withdrawal; F19.24 Other psychoactive substance dependence with psychoactive substance-induced mood disorder; G47.00 Insomnia, unspecified; K21.9 Gastro-esophageal reflux disease without esophagitis; B35.3 Tinea pedis; K74.60 Unspecified cirrhosis of liver; Z86.69 Personal history of other diseases of the nervous system and sense organs

== ENCOUNTER 2020-05-11 11:41 | Inpatient (IN) | payer OTHER ==
--- OUTSIDE RECORDS SUMMARY | 2020-05-11 11:54 | XMS ---
:1980 Author Organization [facility] Care Team Providers Name Role Phone OUTREACH, CITLALY Unavailable Unavailable Re-disclosure Warning The records that you are about to access may contain information from federally- assisted alcohol or drug abuse programs. If such information is present, then the following federally mandated warning applies: This information has been disclosed to you from records protected by federal confidentiality rules (42 CFR part 2). The federal rules prohibit you from making any further disclosure of this information unless further disclosure is expressly permitted by the written consent of the person to whom it pertains or as otherwise permitted by 42 CFR part 2. A general authorization for the release of medical or other information is NOT sufficient for this purpose. The Federal rules restrict any use of the information to criminally investigate or prosecute any alcohol or drug abuse patient.The records that you are about to access may contain highly sensitive health information, the redisclosure of which is protected by Article 27-F of the [facility] Public Health law. If you continue you may haveaccess to information: Regarding HIV / AIDS; Provided by facilities licensed or operated by the [facility] Office of Mental Health; or Provided by the [facility] Office for People With Developmental Disabilities. If such information is present, then the following [facility] mandated warning applies: This information has been disclosed to you from confidential records which are protected by state law. State law prohibits you from making any further disclosure of this information without the specific written consent of the person to whom it pertains, or as otherwise permitted by law. Any unauthorized further disclosure in violation of state law may result in a fine or prison sentence or both. A general authorization for the release of medical or other information is NOT sufficient authorization for further disclosure. Encounters Encounter Providers Location Date Indications Data Source(s ) Outpatient Attender: CITLALY 05/24/2019 [facility] [email or web address] For OUTREACH 11:21:48 AM [facility] EDT Patient admitted. Outpatient Attender: CITLALY 04/12/2019 10:48:58 AM The [place] [facility] EDT [facility] Patient admitted. Insurance Providers Payer name Policy type Policy ID Covered Covered green party's Policy P richard / Coverage green party ID relationship to [place] Inf ormation type pendleton BEACON [id number] SP [id number] 200 HEALTH STRGY-AFF [place] PLUS [id number] Self [id number] [place] [id number] Self [id number] HEALTH PLAN TBHP SLIDING FEE [id number] Self [id number] MEDICAID [place] [id number] Self [id number] [place] PLUS [id number] Self [id number] BEACON [id number] SP [id number] 200 HEALTH STRGY-AFF A[place] Medicaid Mgd [id number] HEALTH PLAN Care TBHP [place] Medicaid Mgd [id number] HEALTH PLAN Care TBHP [place] PLUS [id number] Self [id number] [place] [id number] Self [id number] HEALTH PLAN TBHP [place] PLUS [id number] Self [id number] [place] [id number] Self [id number] HEALTH PLAN TBHP Problems, Conditions, and Diagnoses Code Display Name Description Problem Type Effective Dates Data Source(s) Hospital Hospital Discharge Diagnosis 05/24/2019 The [facility] Discharge Outreach 11:21:48 AM EDT [facility] Call During Call During Clinic Diagnosis 04/12/2019 [facility] Clinic Hours Hours 10:48:58 AM EDT For [facility] Results ID Date Data Source [id number] 02/08/2020 10:56:00 AM EDT [facility] Name Value Range Interpretation Code Description Data Genevieve rce(s) Supporting Document(s ) SARS-CoV-2 [facility] RNA Resp Ql ICNDY+probe This lab was ordered by Fred and macie rted by [facility] and Mental [facility]. Procedure
--- NOTE | 2020-05-11 12:12 | BHS.RME ---
2019 N Coronavirus Screen - COVID-19 Screening Questions Dx of COVID-19 or had a positive test in the last 4 weeks?: No Contact with known/suspected COVID patient in last 14 days?: No Any of these symptoms or contact with someone who has?: None Traveled domestically/internationally in the last 14 days?: Yes Screen score: 1 Screen result: Positive Substance Use & Tx History - Substance Use History Heroin Substance amount: 5-6 bags Date of Last Use: 05/11/20 (started age 16) Xanax Substance amount: 2 mg 3-4 tabs Frequency of use: Daily Substance route: Oral Date of Last Use: 05/10/20 (started age 14) Nicotine Substance amount: 1/2 pack Frequency of use: Daily Substance route: Smoking Date of Last Use: 05/11/20 (started age 11) - Last Treatment Date of last treatment: 06/28-07/08/29 completed Treatment type: Substance Use Disorder (SURJIT) Where was last treatment: Rehab Physical/Psych/Mental Status - Behavior General Behavior: Increased activity (restlessness, agitation) Eye Contact: Normal - Cooperativeness Cooperativeness: Cooperative - Thinking Thought Processes: Tight, Logical, Goal Directed - Physical Health Problems Is patient presently having any pain?: No Does patient presently have any injuries (include location): No Does patient currently have a fever: No Is patient : No COWS - Scale Resting Pulse: 0= [place] 80 or Below Sweatin= Chills/Flushing Restless Observation: 1= Difficult to Sit Still Pupil Size: 1= Pupils >than Normal Bone or Joint Aches: 1= Mild Discomfort Runny Nose/ Eye Tearin= Nasal Congestion GI Upset > 30mins: 1= Stomach Cramp Tremor Observation: 1= Tremor [place], Not Seen Yawning Observation: 1= 1-2x During Session Anxiety or Irritability: 1=Feels Anxious/Irritable Goose Flesh Skin: 0=Smooth Skin COWS Score: 9
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
[2020-05-11] MEDS ORDERED: MAG HYDROX/AL HYDROX/SIMETH 30 ML UNIT-DOSE CUP PO PRN (15:33)
[2020-05-11] MEDS ORDERED: ONDANSETRON *ODT* 4 MG TABLET SL PRN (15:33)
[2020-05-11] MEDS ORDERED: MAGNESIUM HYDROX 2400MG/30ML ORAL SUSPENSION 30 ML CUP PO PRN (15:33)
[2020-05-11] MEDS ORDERED: ACETAMINOPHEN 325 MG TABLET (FP) PO PRN ×2 (15:33)
[2020-05-11] MEDS ORDERED: BISMUTH SUBSALICYLATE 524 MG/30 ML UD PO PRN (15:33)
[2020-05-11] MEDS ORDERED: MENTHOL/PHENOL 1 EACH UD MM PRN (15:33)
[2020-05-11] MEDS ORDERED: MAGNESIUM CITRATE 300 ML BOTTLE PO PRN (15:33)
[2020-05-11] MEDS ORDERED: IBUPROFEN 400 MG TABLET (FP) PO PRN (15:33)
[2020-05-11] MEDS ORDERED: NICOTINE POLACRILEX 2 MG GUM BUC PRN (15:33)
[2020-05-11] MEDS ORDERED: METHADONE HCL 10 MG TABLET (FOR DETOX USE ONLY) PO ONE (15:33)
[2020-05-11 15:40] VITALS: BMI 23.9
[2020-05-11] MEDS ORDERED: LORazepam 1 MG TABLET PO ONE (16:09)
--- OUTSIDE RECORDS SUMMARY | 2020-05-11 16:18 | XMS ---
[...] is protected by Article 27-F of the [facility] Public Health law. If you continue you may haveaccess to information: Regarding HIV / AIDS; Provided by facilities licensed or operated by the [facility] Office of Mental Health; or Provided by the [facility] Office for People With Developmental Disabilities. If such information is present, then the following [facility] mandated warning applies: This information has been [...] law may result in a fine or mcfp sentence or both. A general authorization for the release of medical or other information is NOT sufficient authorization for further disclosure. Encounters Encounter Providers Location Date Indications Data Source(s ) Outpatient Attender: CITLALY 05/24/2019 [facility] [place] For OUTREACH 11:21:48 AM [facility] EDT Patient admitted. Outpatient Attender: CITLALY 04/12/2019 10:48:58 AM The [place] [facility] EDT [facility] Patient admitted. Insurance Providers Payer name Policy type Policy ID Covered Covered alliance party's Policy P richard / Coverage alliance party ID relationship to [place] Inf ormation type pendleton BEACON [id number] SP [id number] 200 HEALTH STRGY-AFF [place] PLUS [id number] Self [id number] [place] [id number] Self [id number] HEALTH PLAN TBHP SLIDING FEE [id number] Self [id number] [place] [id number] Self [id number] [place] PLUS [id number] Self [id number] BEACON [id number] SP [id number] 200 HEALTH STRGY-AFF [place] Medicaid Mgd [id number] HEALTH PLAN Care TBHP [place] Medicaid Mgd [id number] HEALTH PLAN Care TBHP [place] PLUS [id number] Self [id number] [place] [id number] Self [id number] HEALTH PLAN TBHP [place] PLUS [id number] Self [id number] [place] [id number] Self [id number] HEALTH PLAN TBHP Problems, Conditions, and Diagnoses Code Display Name Description Problem Type Effective Dates Data Source(s) Hospital Hospital Discharge Diagnosis 05/24/2019 The [facility] Discharge Outreach 11:21:48 AM EDT For [facility] Call During Call During Clinic Diagnosis 04/12/2019 [facility] Clinic Hours Hours 10:48:58 AM EDT [facility] Results ID Date Data Source [id number] 02/08/2020 10:56:00 AM EDT [facility] Name Value Range Interpretation Code Description Data Genevieve rce(s) Supporting Document(s ) SARS-CoV-2 [facility] RNA Resp Ql CINDY+probe This lab was ordered by Fred and macie rted by [facility]. Procedure
[2020-05-11] MEDS: LORazepam 2 MG TABLET PO SCH ×2 (17:53→22:05)
[2020-05-11] MEDS: hydrOXYzine PAMOATE 25 MG CAPSULE (FP) PO SCH ×2 (17:55→22:05)
[2020-05-11] MEDS: cloNIDine HCL 0.1 MG TABLET PO PRN (19:37)
[2020-05-11] MEDS: THIAMINE HCL 100 MG TABLET (FP) PO SCH (22:04)
[2020-05-11] MEDS: MELATONIN 5 MG TABLETS PO SCH (22:05)
[2020-05-12] MEDS: LORazepam 2 MG TABLET PO SCH ×4 (05:34→22:03)
[2020-05-12] MEDS: hydrOXYzine PAMOATE 25 MG CAPSULE (FP) PO SCH ×5 (05:34→22:03)
[2020-05-12 09:03] LABS: HEMATOCRIT 38.4 % (35.4-49); HEMOGLOBIN 13.1 GM/dL (11.7-16.9); MCH 30.5 pg (25.7-33.7); MEAN CELL VOLUME 89.6 fl (80-96); MEAN PLT VOLUME 9.6 fl (7.5-11.1); PLATELET COUNT 223 K/MM3 (134-434); RBC 4.28 M/mm3 (4.00-5.60); RDW 12.7 % (11.9-15.9); WHITE BLOOD COUNT 5.7 K/mm3 (4.0-10.0)
[2020-05-12] MEDS ORDERED: METHADONE HCL 10 MG TABLET (FOR DETOX USE ONLY) ONE (09:04)
[2020-05-12] MEDS ORDERED: METHADONE HCL 5 MG TABLET (FOR DETOX USE ONLY) ONE (09:04)
[2020-05-12 09:06] LABS: POTASSIUM 4.5 mmol/L (3.5-5.1)
[2020-05-12 09:10] LABS: CALCIUM 8.9 mg/dL (8.5-10.1)
[2020-05-12 09:11] LABS: ALBUMIN 3.7 g/dl (3.4-5.0); BLOOD UREA NITROGEN 10.1 mg/dL (7-18)
[2020-05-12 09:14] LABS: CREATININE 0.8 mg/dL (0.55-1.3)
[2020-05-12 09:15] LABS: BILIRUBIN,TOTAL 0.7 mg/dL (0.2-1); TOT PROT 6.9 g/dl (6.4-8.2)
[2020-05-12] MEDS ORDERED: TRIMETHOBENZAMIDE HCL 300 MG CAPSULE PO PRN (09:28)
[2020-05-12] MEDS ORDERED: METHADONE (DETOX) 20 MG, METHADONE (DETOX) 5 MG PO ONE (10:00)
[2020-05-12] MEDS: PRENATAL VITAMINS W/ FOLIC ACID TABLET (FP) PO SCH (10:27)
[2020-05-12] MEDS: NICOTINE 7 MG/24 HOURS TOPICAL PATCH TD SCH (10:27)
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
[2020-05-12] MEDS: METHOCARBAMOL 500 MG TABLET PO PRN (12:42)
[2020-05-12] MEDS: LORazepam 1 MG TABLET PO PRN (12:42)
[2020-05-12] MEDS: GABAPENTIN 300 MG CAPSULE PO SCH ×2 (15:12→22:03)
--- NOTE | 2020-05-12 17:40 | PN ---
S CIWA - CIWA Score Nausea/Vomitin Muscle Tremors: 2 Anxiety: 3 Agitation: 1-Slight > Activity Paroxysmal Sweats: 3 Orientation: 2-Disoriented Date<2 days Tacttile Disturbances: 0-None Auditory Disturbances: 0-None Visual Disturbances: 0-None Headache: 0-None Present CIWA-Ar Total Score: 14 [facility] COWS - Scale Resting Pulse: 0= [place] 80 or Below Sweatin= Chills/Flushing Restless Observation: 1= Difficult to Sit Still Pupil Size: 0= Normal to Room Light Bone or Joint Aches: 1= Mild Discomfort Runny Nose/ Eye Tearin= None GI Upset > 30mins: 2= Nausea/Diarrhea Tremor Observation of Outstretched Hands: 2= Slight Tremor Visible Yawning Observation: 1= 1-2x During Session Anxiety or Irritability: 2=Irritable/Anxious Goose Flesh Skin: 0=Smooth Skin COWS Score: 10 S Progress Note (SOAP) Subjective: Nausea, Sweating, Chills, Body Aches, Anxious. Objective: Patient A & O X 2 (Uncertain About Current Day/Date). Patient Observed Ambulating on Detox Unit Unassisted. In No Acute Distress. 05/12/20 17:38 Vital Signs Temperature 97.3 F L 05/12/20 16:30 Pulse Rate 51 L 05/12/20 16:30 Respiratory Rate 18 05/12/20 16:30 Blood Pressure 109/71 05/12/20 16:30 O2 Sat by Pulse Oximetry (%) 99 05/12/20 16:30 Laboratory Tests 05/12/20 05/12/20 05/12/20 07:05 07:05 07:05 WBC 5.7 RBC 4.28 Hgb 13.1 Hct 38.4 MCV 89.6 MCH 30.5 MCHC 34.0 RDW 12.7 Plt Count 223 MPV 9.6 Sodium 140 Potassium 4.5 Chloride 107 Carbon Dioxide 30 Anion Gap 3 L BUN 10.1 Creatinine 0.8 Est GFR (CKD-EPI)AfAm 128.60 Est GFR (CKD-EPI)NonAf 110.96 Random Glucose 86 Calcium 8.9 Total Bilirubin 0.7 AST 12 L ALT 28 Alkaline Phosphatase 71 Total Protein 6.9 Albumin 3.7 Syphilis Serology Non-reactive Lab Results noted. Assessment: 05/12/20 17:39 WITHDRAWAL SYMPTOMS. Plan: Continue Detox. Increase Daily Oral Water Intake.
--- NOTE | 2020-05-12 18:35 | EKG ---
Test Reason : Blood Pressure : / mmHG Vent. Rate : 058 BPM Atrial Rate : 058 BPM P-R Int : 166 ms QRS Dur : 094 ms QT Int : 418 ms P-R-T Axes : 066 072 051 degrees QTc Int : 410 ms SINUS BRADYCARDIA OTHERWISE NORMAL ECG WHEN COMPARED WITH ECG OF 31-MAR-2019 22:18, NO SIGNIFICANT CHANGE WAS FOUND Confirmed by MD NITZA, GERRI ([id number]) on 05/12/2020 6:34:48 PM Referred By: Confirmed By:GERRI GODDARD MD
[2020-05-12] MEDS: MELATONIN 5 MG TABLETS PO SCH (22:03)
[2020-05-12] MEDS: THIAMINE HCL 100 MG TABLET (FP) PO SCH (22:03)
[2020-05-12] MEDS: QUEtiapine FUMARATE 50 MG TABLET PO SCH (22:03)
[2020-05-13] MEDS: METHOCARBAMOL 500 MG TABLET PO PRN ×2 (00:34→15:38)
[2020-05-13] MEDS: cloNIDine HCL 0.1 MG TABLET PO PRN ×2 (00:34→07:34)
[2020-05-13] MEDS: GABAPENTIN 300 MG CAPSULE PO SCH ×3 (05:23→22:36)
[2020-05-13] MEDS: hydrOXYzine PAMOATE 25 MG CAPSULE (FP) PO SCH ×5 (05:23→22:35)
[2020-05-13] MEDS: LORazepam 1 MG TABLET PO SCH ×4 (05:23→22:36)
[2020-05-13] MEDS: LORazepam 1 MG TABLET PO PRN ×2 (08:25→15:38)
[2020-05-13] MEDS ORDERED: QUEtiapine FUMARATE 25 MG TABLET ONE ×2 (08:43→21:18)
[2020-05-13] MEDS: NICOTINE 7 MG/24 HOURS TOPICAL PATCH TD SCH (09:29)
[2020-05-13] MEDS: PRENATAL VITAMINS W/ FOLIC ACID TABLET (FP) PO SCH (09:31)
[2020-05-13] MEDS: QUEtiapine FUMARATE 50 MG TABLET PO SCH ×2 (09:31→22:36)
[2020-05-13] MEDS ORDERED: METHADONE HCL 10 MG TABLET (FOR DETOX USE ONLY) PO ONE (10:00)
--- NOTE | 2020-05-13 11:48 | PN ---
[facility] CIWA - CIWA Score Nausea/Vomitin-Mild Nausea/No Vomiting Muscle Tremors: 2 Anxiety: 2 Agitation: 2 Paroxysmal Sweats: 2 Orientation: 0-Oriented Tacttile Disturbances: 0-None Auditory Disturbances: 0-None Visual Disturbances: 0-None Headache: 0-None Present CIWA-Ar Total Score: 9 [facility] COWS - Scale Resting Pulse: 0= [place] 80 or Below Sweatin= Chills/Flushing Restless Observation: 0= Sits Still Pupil Size: 0= Normal to Room Light Bone or Joint Aches: 2= Severe Diffuse Aches Runny Nose/ Eye Tearin= None GI Upset > 30mins: 2= Nausea/Diarrhea Tremor Observation of Outstretched Hands: 0= None Yawning Observation: 0= None Anxiety or Irritability: 2=Irritable/Anxious Goose Flesh Skin: 0=Smooth Skin COWS Score: 7 [facility] Progress Note (SOAP) Subjective: Complaints of nausea, anxiety, tremors, sweats, and bone aches. Objective: 05/13/20 11:47 Vital Signs 05/13/20 05/13/20 06:15 08:45 Temperature 98.0 F 97.5 F L Pulse Rate 59 L 62 Respiratory 20 18 Rate Blood Pressure 105/65 100/64 O2 Sat by Pulse 100 100 Oximetry (%) Laboratory Last Values WBC 5.7 K/mm3 (4.0-10.0) 05/12/20 07:05 RBC 4.28 M/mm3 (4.00-5.60) 05/12/20 07:05 Hgb 13.1 GM/dL (11.7-16.9) 05/12/20 07:05 Hct 38.4 % (35.4-49) 05/12/20 07:05 MCV 89.6 fl (80-96) 05/12/20 07:05 MCH 30.5 pg (25.7-33.7) 05/12/20 07:05 MCHC 34.0 g/dl (32.0-35.9) 05/12/20 07:05 RDW 12.7 % (11.9-15.9) 05/12/20 07:05 Plt Count 223 K/MM3 (134-434) 05/12/20 07:05 MPV 9.6 fl (7.5-11.1) 05/12/20 07:05 Sodium 140 mmol/L (136-145) 05/12/20 07:05 Potassium 4.5 mmol/L (3.5-5.1) 05/12/20 07:05 Chloride 107 mmol/L (98-107) 05/12/20 07:05 Carbon Dioxide 30 mmol/L (21-32) 05/12/20 07:05 Anion Gap 3 MMOL/L (8-16) L 05/12/20 07:05 BUN 10.1 mg/dL (7-18) 05/12/20 07:05 Creatinine 0.8 mg/dL (0.55-1.3) 05/12/20 07:05 Est GFR (CKD-EPI)AfAm 128.60 05/12/20 07:05 Est GFR (CKD-EPI)NonAf 110.96 05/12/20 07:05 Random Glucose 86 mg/dL (74-106) 05/12/20 07:05 Calcium 8.9 mg/dL (8.5-10.1) 05/12/20 07:05 Total Bilirubin 0.7 mg/dL (0.2-1) 05/12/20 07:05 AST 12 U/L (15-37) L 05/12/20 07:05 ALT 28 U/L (13-61) 05/12/20 07:05 Alkaline Phosphatase 71 U/L (45-117) 05/12/20 07:05 Total Protein 6.9 g/dl (6.4-8.2) 05/12/20 07:05 Albumin 3.7 g/dl (3.4-5.0) 05/12/20 07:05 Syphilis Serology Non-reactive (NONREACTIVE) 05/12/20 07:05 COVID-19 (CINDY) Not detected (Not Detected) 05/11/20 16:00 Labs noted. Assessment: 05/13/20 11:48 Alert and oriented x3, in no acute respiratory distress. Full ROM, ambulating in unit without any assistance. Skin warm to touch without lesions. Withdrawal symptoms. Plan: Continue detox protocol.
[2020-05-13] MEDS: MELATONIN 5 MG TABLETS PO SCH (22:37)
[2020-05-13] MEDS: THIAMINE HCL 100 MG TABLET (FP) PO SCH (22:37)
[2020-05-14] MEDS: LORazepam 0.5 MG TABLET PO PRN ×2 (01:14→15:43)
[2020-05-14] MEDS: hydrOXYzine PAMOATE 25 MG CAPSULE (FP) PO SCH (05:39)
[2020-05-14] MEDS: GABAPENTIN 300 MG CAPSULE PO SCH ×3 (05:39→22:00)
[2020-05-14] MEDS: LORazepam 0.5 MG TABLET PO SCH ×4 (05:39→21:59)
[2020-05-14] MEDS ORDERED: ONDANSETRON *ODT* 4 MG TABLET SL PRN (08:41)
[2020-05-14] MEDS ORDERED: METHADONE HCL 5 MG TABLET (FOR DETOX USE ONLY) ONE (09:32)
[2020-05-14] MEDS ORDERED: METHADONE HCL 10 MG TABLET (FOR DETOX USE ONLY) ONE (09:32)
[2020-05-14] MEDS ORDERED: QUEtiapine FUMARATE 25 MG TABLET ONE (09:32)
[2020-05-14] MEDS ORDERED: hydrOXYzine PAMOATE 25 MG CAPSULE (FP) PO PRN (09:58)
--- NOTE | 2020-05-14 09:59 | PN ---
[facility] CIWA - CIWA Score Nausea/Vomitin-No Nausea/No Vomiting Muscle Tremors: 2 Anxiety: 1-Mildly Anxious Agitation: 2 Paroxysmal Sweats: 2 Orientation: 0-Oriented Tacttile Disturbances: 0-None Auditory Disturbances: 0-None Visual Disturbances: 0-None Headache: 0-None Present CIWA-Ar Total Score: 7 BHS COWS - Scale Resting Pulse: 0= [place] 80 or Below Sweatin= Chills/Flushing Restless Observation: 1= Difficult to Sit Still Pupil Size: 0= Normal to Room Light Bone or Joint Aches: 1= Mild Discomfort Runny Nose/ Eye Tearin= Nasal Congestion GI Upset > 30mins: 0= None Tremor Observation of Outstretched Hands: 1= Tremor [place], Not Seen Yawning Observation: 1= 1-2x During Session Anxiety or Irritability: 1=Feels Anxious/Irritable Goose Flesh Skin: 0=Smooth Skin COWS Score: 7 S Progress Note (SOAP) Subjective: sweats agitation body aches interrupted sleep Objective: 05/14/20 10:18 Vital Signs Temperature 99 F 05/14/20 08:27 Pulse Rate 71 05/14/20 08:27 Respiratory Rate 18 05/14/20 08:27 Blood Pressure 122/76 05/14/20 08:27 O2 Sat by Pulse Oximetry (%) 98 05/14/20 08:27 Laboratory Tests 05/11/20 05/12/20 05/12/20 16:00 07:05 07:05 WBC 5.7 RBC 4.28 Hgb 13.1 Hct 38.4 MCV 89.6 MCH 30.5 MCHC 34.0 RDW 12.7 Plt Count 223 MPV 9.6 Sodium Potassium Chloride Carbon Dioxide Anion Gap BUN Creatinine Est GFR (CKD-EPI)AfAm Est GFR (CKD-EPI)NonAf Random Glucose Calcium Total Bilirubin AST ALT Alkaline Phosphatase Total Protein Albumin Syphilis Serology Non-reactive COVID-19 (CINDY) Not detected 05/12/20 07:05 WBC RBC Hgb Hct MCV MCH MCHC RDW Plt Count MPV Sodium 140 Potassium 4.5 Chloride 107 Carbon Dioxide 30 Anion Gap 3 L BUN 10.1 Creatinine 0.8 Est GFR (CKD-EPI)AfAm 128.60 Est GFR (CKD-EPI)NonAf 110.96 Random Glucose 86 Calcium 8.9 Total Bilirubin 0.7 AST 12 L ALT 28 Alkaline Phosphatase 71 Total Protein 6.9 Albumin 3.7 Syphilis Serology COVID-19 (CINDY) labs noted aaox3 ambulating no acute distress Assessment: 05/14/20 10:19 withdrawals Plan: continue detox
[2020-05-14] MEDS ORDERED: METHADONE (DETOX) 10 MG, METHADONE (DETOX) 5 MG PO ONE (10:00)
[2020-05-14] MEDS: NICOTINE 7 MG/24 HOURS TOPICAL PATCH TD SCH (10:19)
[2020-05-14] MEDS: PRENATAL VITAMINS W/ FOLIC ACID TABLET (FP) PO SCH (10:19)
[2020-05-14] MEDS: QUEtiapine FUMARATE 50 MG TABLET PO SCH ×2 (10:20→22:00)
[2020-05-14] MEDS: METHOCARBAMOL 500 MG TABLET PO PRN (15:47)
[2020-05-14] MEDS: THIAMINE HCL 100 MG TABLET (FP) PO SCH (21:59)
[2020-05-14] MEDS: MELATONIN 5 MG TABLETS PO SCH (22:00)
[2020-05-15] MEDS ORDERED: LORazepam 0.5 MG TABLET PO ONE (05:00)
[2020-05-15] MEDS: GABAPENTIN 300 MG CAPSULE PO SCH (06:44)
--- NOTE | 2020-05-15 09:36 | PN ---
[facility] CIWA - CIWA Score Nausea/Vomitin-Mild Nausea/No Vomiting Muscle Tremors: 1-None Visible, but [place] Anxiety: 1-Mildly Anxious Agitation: 1-Slight > Activity Paroxysmal Sweats: 1-Minimal Palms Moist Orientation: 0-Oriented Tacttile Disturbances: 0-None Auditory Disturbances: 0-None Visual Disturbances: 0-None Headache: 1-Very Mild CIWA-Ar Total Score: 6 S COWS - Scale Resting Pulse: 0= [place] 80 or Below Sweatin= No chills or Flushing Restless Observation: 0= Sits Still Pupil Size: 0= Normal to Room Light Bone or Joint Aches: 1= Mild Discomfort Runny Nose/ Eye Tearin= Nasal Congestion GI Upset > 30mins: 1= Stomach Cramp Tremor Observation of Outstretched Hands: 1= Tremor [place], Not Seen Yawning Observation: 2= >3x During Session Anxiety or Irritability: 2=Irritable/Anxious Goose Flesh Skin: 0=Smooth Skin COWS Score: 8 [facility] Progress Note (SOAP) Subjective: alert,irritable,anxious,interrupted sleep,aching pain, Objective: 05/15/20 09:35 Vital Signs Temperature 97.3 F L 05/15/20 05:17 Pulse Rate 61 05/15/20 05:17 Respiratory Rate 16 05/15/20 05:17 Blood Pressure 101/60 05/15/20 05:17 O2 Sat by Pulse Oximetry (%) 98 05/15/20 05:17 Assessment: 05/15/20 09:35 withdrawal symptom Plan: continue detox methadone and ativan regimen
[2020-05-15 09:40] VITALS: BP 123/66; PULSE 62; TEMP 98
[2020-05-15] MEDS ORDERED: METHADONE HCL 10 MG TABLET (FOR DETOX USE ONLY) PO ONE (10:00)
[2020-05-15] MEDS: PRENATAL VITAMINS W/ FOLIC ACID TABLET (FP) PO SCH (10:07)
[2020-05-15] MEDS: QUEtiapine FUMARATE 50 MG TABLET PO SCH (10:07)
[2020-05-15] MEDS: NICOTINE 7 MG/24 HOURS TOPICAL PATCH TD SCH (10:07)
--- NOTE | 2020-05-15 11:40 | PN ---
[facility] CIWA - CIWA Score Nausea/Vomitin-No Nausea/No Vomiting Muscle Tremors: None Anxiety: 1-Mildly Anxious Agitation: 0-Normal Activity Paroxysmal Sweats: No Perspiration Orientation: 0-Oriented Tacttile Disturbances: 0-None Auditory Disturbances: 0-None Visual Disturbances: 0-None Headache: 0-None Present CIWA-Ar Total Score: 1 [facility] COWS - Scale Resting Pulse: 0= [place] 80 or Below Sweatin= No chills or Flushing Restless Observation: 0= Sits Still Pupil Size: 0= Normal to Room Light Bone or Joint Aches: 0= None Runny Nose/ Eye Tearin= None GI Upset > 30mins: 0= None Tremor Observation of Outstretched Hands: 0= None Yawning Observation: 0= None Anxiety or Irritability: 1=Feels Anxious/Irritable Goose Flesh Skin: 0=Smooth Skin COWS Score: 1 [facility] Progress Note (SOAP) Subjective: alert,no complaint Objective: 05/15/20 11:40 Vital Signs Temperature 98.0 F 05/15/20 09:13 Pulse Rate 62 05/15/20 09:13 Respiratory Rate 17 05/15/20 09:13 Blood Pressure 123/66 05/15/20 09:13 O2 Sat by Pulse Oximetry (%) 99 05/15/20 09:13 Assessment: 05/15/20 11:40 no withdrawal symptom Plan: stable for discharge today to rehab
--- NOTE | 2020-05-15 11:41 | DS ---
[facility] Detox Discharge Summary Admission Date: 05/11/20 Discharge Date: 05/15/20 - History Present History: Alcohol Dependence, Cannabis Dependence, Opioid Dependence, Sedative Dependence Additional Comments: alert,oriented x 3 ambulation on the unit lung clear on auscultation abdomen soft,no pain,no tenderness no edema of legs no withdrawal symptom stable for discharge today follow up with after care program [facility] as arrangement total time spending on discharge 35 minutes Pertinent Past History: history of schizophrenia nicotine dependence hepatitis c - Physical Exam Results Vital Signs: Vital Signs Temperature 98.0 F 05/15/20 09:13 Pulse Rate 62 05/15/20 09:13 Respiratory Rate 17 05/15/20 09:13 Blood Pressure 123/66 05/15/20 09:13 O2 Sat by Pulse Oximetry (%) 99 05/15/20 09:13 Pertinent Admission Physical Exam Findings: withdrawal signs and symptom Vital Signs Temperature 98.0 F 05/15/20 09:13 Pulse Rate 62 05/15/20 09:13 Respiratory Rate 17 05/15/20 09:13 Blood Pressure 123/66 05/15/20 09:13 O2 Sat by Pulse Oximetry (%) 99 05/15/20 09:13 Laboratory Last Values WBC 5.7 K/mm3 (4.0-10.0) 05/12/20 07:05 RBC 4.28 M/mm3 (4.00-5.60) 05/12/20 07:05 Hgb 13.1 GM/dL (11.7-16.9) 05/12/20 07:05 Hct 38.4 % (35.4-49) 05/12/20 07:05 MCV 89.6 fl (80-96) 05/12/20 07:05 MCH 30.5 pg (25.7-33.7) 05/12/20 07:05 MCHC 34.0 g/dl (32.0-35.9) 05/12/20 07:05 RDW 12.7 % (11.9-15.9) 05/12/20 07:05 Plt Count 223 K/MM3 (134-434) 05/12/20 07:05 MPV 9.6 fl (7.5-11.1) 05/12/20 07:05 Sodium 140 mmol/L (136-145) 05/12/20 07:05 Potassium 4.5 mmol/L (3.5-5.1) 05/12/20 07:05 Chloride 107 mmol/L (98-107) 05/12/20 07:05 Carbon Dioxide 30 mmol/L (21-32) 05/12/20 07:05 Anion Gap 3 MMOL/L (8-16) L 05/12/20 07:05 BUN 10.1 mg/dL (7-18) 05/12/20 07:05 Creatinine 0.8 mg/dL (0.55-1.3) 05/12/20 07:05 Est GFR (CKD-EPI)AfAm 128.60 05/12/20 07:05 Est GFR (CKD-EPI)NonAf 110.96 05/12/20 07:05 Random Glucose 86 mg/dL (74-106) 05/12/20 07:05 Calcium 8.9 mg/dL (8.5-10.1) 05/12/20 07:05 Total Bilirubin 0.7 mg/dL (0.2-1) 05/12/20 07:05 AST 12 U/L (15-37) L 05/12/20 07:05 ALT 28 U/L (13-61) 05/12/20 07:05 Alkaline Phosphatase 71 U/L (45-117) 05/12/20 07:05 Total Protein 6.9 g/dl (6.4-8.2) 05/12/20 07:05 Albumin 3.7 g/dl (3.4-5.0) 05/12/20 07:05 Syphilis Serology Non-reactive (NONREACTIVE) 05/12/20 07:05 COVID-19 (CINDY) Not detected (Not Detected) 05/11/20 16:00 Vital Signs Temperature 98.0 F 05/15/20 09:13 Pulse Rate 62 05/15/20 09:13 Respiratory Rate 17 05/15/20 09:13 Blood Pressure 123/66 05/15/20 09:13 O2 Sat by Pulse Oximetry (%) 99 05/15/20 09:13 - Treatment Hospital Course: Detox Protocol Followed, Detoxed Safely, Responded well, Discharged Condition Good, Rehab Referral Accepted Patient has Accepted a Rehab Referral to: [facility] - Medication Discharge Medications: Ambulatory Orders NK [No Known Home Medication] 05/11/20 - Diagnosis (1) Opioid withdrawal Current Visit: Yes Status: Acute (2) Cannabis dependence Current Visit: Yes Status: Acute (3) Nicotine dependence Current Visit: Yes Status: Acute Qualifiers: Nicotine product type: cigarettes Substance use status: uncomplicated Qualified Code(s): F17.210 - Nicotine dependence, cigarettes, uncomplicated (4) Sedative, hypnotic or anxiolytic abuse Current Visit: Yes Status: Acute (5) History of schizophrenia Current Visit: Yes Status: Chronic (6) Alcohol dependence with uncomplicated withdrawal Current Visit: No Status: Acute (7) Hepatitis C Current Visit: No Status: Chronic - AMA Did Patient Leave Against Medical Advice: No
[2020-05-16] MEDS ORDERED: METHADONE HCL 5 MG TABLET (FOR DETOX USE ONLY) PO ONE (06:00)
== END 2020-05-15 12:25 | disposition other institution (70) | DRG 773 ==
LOC: YASAS 11:41 → Y6N 15:50
PROVIDERS: ADMIT Allergy & Immunology; ATTEND Allergy & Immunology
PROC: HZ2ZZZZ Detoxification Services for Substance Abuse Treatment (ICD-10-PCS; principal; 2020-05-11)
DX: F11.23 Opioid dependence with withdrawal (principal); F13.20 Sedative, hypnotic or anxiolytic dependence, uncomplicated; F12.20 Cannabis dependence, uncomplicated; F17.210 Nicotine dependence, cigarettes, uncomplicated; F19.282 Other psychoactive substance dependence with psychoactive substance-induced sleep disorder; F31.9 Bipolar disorder, unspecified; F20.9 Schizophrenia, unspecified; F90.9 Attention-deficit hyperactivity disorder, unspecified type; K21.9 Gastro-esophageal reflux disease without esophagitis; B18.2 Chronic viral hepatitis C; K74.60 Unspecified cirrhosis of liver; D17.1 Benign lipomatous neoplasm of skin and subcutaneous tissue of trunk; Z62.811 Personal history of psychological abuse in childhood; Z86.69 Personal history of other diseases of the nervous system and sense organs; Z87.828 Personal history of other (healed) physical injury and trauma; Z98.890 Other specified postprocedural states
CPT/HCPCS: 36415; 80053; 85027; 86780; 93005; 93010; C9803; J0735; Q0162; U0003

== ENCOUNTER 2020-05-15 12:43 | Inpatient (IN) | payer OTHER ==
--- OUTSIDE RECORDS SUMMARY | 2020-05-15 12:46 | XMS ---
[...] is protected by Article 27-F of the [facility] Public Health law. If you continue you may haveaccess to information: Regarding HIV / AIDS; Provided by facilities licensed or operated by the [facility] Office of Mental Health; or Provided by the [facility] Office for People With Developmental Disabilities. If such information is present, then the following [facility] mandated warning applies: This information has been [...] law may result in a fine or senior care sentence or both. A general authorization for the release of medical or other information is NOT sufficient authorization for further disclosure. Encounters Encounter Providers Location Date Indications Data Source(s ) Outpatient Attender: CITLALY 05/24/2019 [email or web address] [email or web address] For OUTREACH 11:21:48 AM [facility] EDT Patient admitted. Outpatient Attender: CITLALY 04/12/2019 10:48:58 AM The [place] [facility] EDT [facility] Patient admitted. Insurance Providers Payer name Policy type Policy ID Covered Covered libertarian's Policy P richard / Coverage libertarian ID relationship to [place] Inf ormation type [place] [id number] SP [id number] 200 HEALTH STRGY-AFF [place] PL[place] [id number] Self [id number] [place] [id number] Self [id number] HEALTH PLAN TBHP SLIDING FEE [id number] Self [id number] [place]ID [place] [id number] Self [id number] [place] PL[place] [id number] Self [id number] [place] [id number] SP [id number] 200 HEALTH STRGY-AFF [place] Medicaid Mgd [id number] HEALTH PLAN Care TBHP [place] Medicaid Mgd [id number] HEALTH PLAN Care TBHP [place] PL[place] [id number] Self [id number] [place] [id number] Self [id number] HEALTH PLAN TBHP [place] PL[place] [id number] Self [id number] [place] [id number] Self [id number] HEALTH PLAN TBHP Problems, Conditions, and Diagnoses Code Display Name Description Problem Type Effective Dates Data Source(s) Hospital Hospital Discharge Diagnosis 05/24/2019 The In stitute Discharge Outreach 11:21:48 AM EDT [facility] Call During Call During Clinic Diagnosis 04/12/2019 [facility] Clinic Hours Hours 10:48:58 AM EDT For [facility] Results ID Date Data Source [id number] 05/11/2020 04:00:00 PM EDT [facility] Name Value Range Interpretation Description Data Sup porting Code Source(s) Document(s ) SARS [facility] coronavirus 2 RNA This lab was ordered by [place] Simona Clemens and reported by [facility]. ID Date Data Source [id number] 02/08/2020 10:56:00 AM EDT [facility] Name Value Range Interpretation Code Description Data Genevieve rce(s) Supporting Document(s ) SARS-CoV-2 [facility] RNA Resp Ql CINDY+probe This lab was ordered by [place] and repo rted by [facility]. Procedure
--- OUTSIDE RECORDS SUMMARY | 2020-05-15 12:48 | XMS ---
[...] is protected by Article 27-F of the [facility] Public Health law. If you continue you may haveaccess to information: Regarding HIV / AIDS; Provided by facilities licensed or operated by the [facility] Office of Mental Health; or Provided by the [facility] Office for People With Developmental Disabilities. If such information is present, then the following [facility] mandated warning applies: This information [...] law may result in a fine or detention sentence or both. A general authorization for the release of medical or other information is NOT sufficient authorization for further disclosure. Encounters Encounter Providers Location Date Indications Data Source(s ) Outpatient Attender: CITLALY 05/24/2019 The [facility] [place] For OUTREACH 11:21:48 AM [facility] EDT Patient admitted. Outpatient Attender: CITLALY 04/12/2019 10:48:58 AM The [place] [facility] EDT [facility] Patient admitted. Insurance Providers Payer name Policy type Policy ID Covered Covered alliance party's Policy P richard / Coverage alliance party ID relationship to [place] Inf ormation type pendleton BEACON [id number] SP [id number] 200 HEALTH STRGY-AFF [place] PL[place] [id number] Self [id number] [place] [id number] Self [id number] HEALTH PLAN TBHP SLIDING FEE [id number] Self [id number] [place] [id number] Self [id number] [place] PL[place] [id number] Self [id number] [place] [id number] SP [id number] 200 HEALTH STRGY-AFF [place] Medicaid Mgd [id number] HEALTH PLAN Care TBHP [place] Medicaid Mgd [id number] HEALTH PLAN Care TBHP [place] PL[place] [id number] Self [id number] [place] [id number] Self [id number] HEALTH PLAN TBHP [place] PL[place] [id number] Self [id number] [place] [id number] Self [id number] HEALTH PLAN TBHP Problems, Conditions, and Diagnoses Code Display Name Description Problem Type Effective Dates Data Source(s) Hospital Hospital Discharge Diagnosis 05/24/2019 The In stitute Discharge Outreach 11:21:48 AM EDT [facility] Call During Call During Clinic Diagnosis 04/12/2019 [facility] Clinic Hours Hours 10:48:58 AM EDT For Critical access hospital Results ID Date Data Source [id number] 05/11/2020 04:00:00 PM EDT [facility] Name Value Range Interpretation Description Data Sup porting Code Source(s) Document(s ) SARS [facility] coronavirus 2 RNA This lab was ordered by [place] Simona Clemens and reported by [facility]. ID Date Data Source [id number] 02/08/2020 10:56:00 AM EDT [facility] Name Value Range Interpretation Code Description Data Genevieve rce(s) Supporting Document(s ) SARS-CoV-2 [facility] RNA Resp Ql CINDY+probe This lab was ordered by [place] and repo rted by [facility]. Procedure
[2020-05-15] MEDS ORDERED: guaiFENesin 200 MG/10 ML 10 ML UNIT-DOSE CUPS PO PRN (13:44)
[2020-05-15] MEDS ORDERED: MAGNESIUM CITRATE 300 ML BOTTLE PO PRN (13:44)
[2020-05-15] MEDS ORDERED: MAGNESIUM HYDROX 2400MG/30ML ORAL SUSPENSION 30 ML CUP PO PRN (13:44)
[2020-05-15] MEDS ORDERED: hydrOXYzine PAMOATE 25 MG CAPSULE (FP) PO PRN (13:44)
[2020-05-15] MEDS ORDERED: MENTHOL/PHENOL 1 EACH UD MM PRN (13:44)
[2020-05-15] MEDS ORDERED: NICOTINE POLACRILEX 2 MG GUM BUC PRN (13:44)
[2020-05-15] MEDS ORDERED: LOPERAMIDE HCL 2 MG CAPSULE PO PRN (13:44)
[2020-05-15] MEDS ORDERED: IBUPROFEN 400 MG TABLET (FP) PO PRN (13:44)
[2020-05-15] MEDS ORDERED: P-EPHED 60MG/TRIPROLIDI 2.5MG TABLET PO PRN (13:44)
[2020-05-15] MEDS ORDERED: ACETAMINOPHEN 325 MG TABLET (FP) PO PRN (13:44)
[2020-05-15] MEDS ORDERED: TRIMETHOBENZAMIDE HCL 300 MG CAPSULE PO PRN (13:47)
--- NOTE | 2020-05-15 13:52 | HP ---
[facility] Rehab Assess/Revision - Admission History Admitted to Rehab from: [facility] Date of Admission to Rehab: 05/15/2020 - Vital signs Vital Signs: Vital Signs Period Temp Pulse Resp BP Sys/Burns Pulse Ox Last 24 Hr 97.1 F 83 18 115/74 98 - Findings Detox History & Physical reviewed: Yes Concur with findings: Yes Comments/Additional Findings: Physical. General Appearance: No apparent distress. HEENTM: EOMI,Normocephalic,. Respiratory: No Respiratory Distress, No Accessory Muscle Use. Neck: Supple. Cardiology: Regular Rhythm & Rate. A bdominal: +Bowel Sounds. Neurological: No cognitive deficits Inpatient Rehab Admission - Rehab Decision to Admit Inpatient rehab admission?: Yes - Initial Determination Are CD services needed?: Yes Free of communicable disease: Yes Not in need of hospitalization: Yes - Rehab Admission Criteria Previous failed treatment: Yes Poor recovery environment: Yes Comorbidities: Yes Lacks judgement: Yes Patient is meeting Inpatient Rehab admission criteria:: Yes
[2020-05-15] MEDS: METHOCARBAMOL 500 MG TABLET PO SCH ×3 (14:53→21:26)
[2020-05-15] MEDS: GABAPENTIN 300 MG CAPSULE PO SCH ×2 (14:53→21:24)
[2020-05-15] MEDS ORDERED: TUBERCULIN PPD 5 TU/0.1ML VIAL ID ONE (14:56)
[2020-05-15] MEDS: QUEtiapine FUMARATE 50 MG TABLET PO SCH (21:24)
[2020-05-15] MEDS: MELATONIN 5 MG TABLETS PO SCH (21:24)
[2020-05-15] MEDS: THIAMINE HCL 100 MG TABLET (FP) PO SCH (21:24)
[2020-05-15] MEDS: cloNIDine HCL 0.1 MG TABLET PO PRN (21:25)
[2020-05-16] MEDS: GABAPENTIN 300 MG CAPSULE PO SCH ×3 (05:57→21:30)
[2020-05-16] MEDS: MAG HYDROX/AL HYDROX/SIMETH 30 ML UNIT-DOSE CUP PO PRN (10:12)
[2020-05-16] MEDS: QUEtiapine FUMARATE 50 MG TABLET PO SCH ×2 (10:13→21:30)
[2020-05-16] MEDS: NICOTINE 7 MG/24 HOURS TOPICAL PATCH TD SCH (10:13)
[2020-05-16] MEDS: METHOCARBAMOL 500 MG TABLET PO SCH ×4 (10:13→21:30)
[2020-05-16] MEDS: PRENATAL VITAMINS W/ FOLIC ACID TABLET (FP) PO SCH (10:13)
[2020-05-16] MEDS ORDERED: HYDROCORTISONE 1% TOPICAL CREAM 30 GM TUBE TP PRN (13:56)
[2020-05-16] MEDS: cloNIDine HCL 0.1 MG TABLET PO PRN ×2 (13:59→21:32)
[2020-05-16] MEDS: THIAMINE HCL 100 MG TABLET (FP) PO SCH (21:30)
[2020-05-16] MEDS: MELATONIN 5 MG TABLETS PO SCH (21:30)
[2020-05-17] MEDS: GABAPENTIN 300 MG CAPSULE PO SCH ×3 (06:27→21:31)
[2020-05-17] MEDS: NICOTINE 7 MG/24 HOURS TOPICAL PATCH TD SCH (10:00)
[2020-05-17] MEDS: METHOCARBAMOL 500 MG TABLET PO SCH (10:01)
[2020-05-17] MEDS: PRENATAL VITAMINS W/ FOLIC ACID TABLET (FP) PO SCH (10:01)
[2020-05-17] MEDS: QUEtiapine FUMARATE 50 MG TABLET PO SCH ×2 (10:02→21:31)
[2020-05-17] MEDS: cloNIDine HCL 0.1 MG TABLET PO PRN ×2 (10:02→21:32)
[2020-05-17] MEDS: PANTOPRAZOLE 40 MG TABLET PO SCH (13:50)
[2020-05-17] MEDS: MAG HYDROX/AL HYDROX/SIMETH 30 ML UNIT-DOSE CUP PO PRN (15:10)
--- NOTE | 2020-05-17 15:29 | PN ---
[facility] Progress Note (SOAP) Subjective: c/o sharp pain to chest area.Reports no BM x 3 days. Hx of GERD and on Protonix which pt refused per nurse. Denies n/v/d, dizziness, headache, or sob. Objective: 05/17/20 15:29 Vital Signs - 24 hr 05/16/20 05/17/20 05/17/20 20:35 06:21 14:30 Temperature 98.0 F 97.7 F Pulse Rate 63 65 Respiratory 18 18 Rate Blood Pressure 127/75 109/56 L O2 Sat by Pulse 98 99 96 Oximetry (%) 05/17/20 15:08 Temperature 98 F Pulse Rate 54 L Respiratory 19 Rate Blood Pressure 121/67 O2 Sat by Pulse 98 Oximetry (%) General:Alert o x 3, calm Cardiac:s1 s2, rrrr resp:ctab Abdomen:soft,+bs,flat,nt Assessment: 05/17/20 16:28 constipation GERD Gas Plan: Mylanta MOM or Citrate if needed prn cont protonix increase po fluids monitor pt's symptoms
[2020-05-17] MEDS ORDERED: MASKS NR ONE (16:19)
[2020-05-17] MEDS: METHOCARBAMOL 500 MG TABLET PO PRN (17:23)
[2020-05-17] MEDS: THIAMINE HCL 100 MG TABLET (FP) PO SCH (21:30)
[2020-05-17] MEDS: MELATONIN 5 MG TABLETS PO SCH (21:30)
[2020-05-18] MEDS: GABAPENTIN 300 MG CAPSULE PO SCH ×2 (06:28→14:32)
[2020-05-18 07:09] VITALS: BP 110/69; PULSE 49; TEMP 97.3
[2020-05-18] MEDS: cloNIDine HCL 0.1 MG TABLET PO PRN (10:25)
[2020-05-18] MEDS: PANTOPRAZOLE 40 MG TABLET PO SCH (10:25)
[2020-05-18] MEDS: QUEtiapine FUMARATE 50 MG TABLET PO SCH (10:25)
[2020-05-18] MEDS: NICOTINE 7 MG/24 HOURS TOPICAL PATCH TD SCH (10:26)
[2020-05-18] MEDS: PRENATAL VITAMINS W/ FOLIC ACID TABLET (FP) PO SCH (10:26)
[2020-05-18] MEDS: METHOCARBAMOL 500 MG TABLET PO PRN (10:26)
--- NOTE | 2020-05-18 15:54 | DS ---
[facility] Rehab Discharge Summary - [facility] Rehab Discharge Summary Admission Date: 05/15/20 Discharge Date: 05/18/20 - History Present History: Opioid dependence, Sedative dependence - Discharge Physical Exam Vital Signs: Vital Signs Temperature 97.3 F L 05/18/20 07:08 Pulse Rate 49 L 05/18/20 07:08 Respiratory Rate 20 05/18/20 07:08 Blood Pressure 110/69 05/18/20 07:08 O2 Sat by Pulse Oximetry (%) 98 05/18/20 13:45 Patient escorted to security to retrieve medication from property for pharmacy identification. Patient ingested unidentified pill as witnessed by security team. Educational Interpreter notified of occurrence and evaluated patient while in security office. Patient stated to provider that he took 1mg of suboxone because he was no longer taking on methadone. He states " I planned it but I knew by doing this I was breaking the rules." Patient denies chest pain, sob, dizziness, cough and palpitations. Provider unable to identify pill as no prescription bottle or wrapper available. PE: alert and oriented x 3 skin warm and dry in no acute distress, sitting calmly in chair no sweating, change in mentation or weakness noted ext full rom, no visible tremors A/P: Opiod/sedative dependence indigestion of unidentified medication Discussed above occurrence with Dr. Torres. agrees with plan to have patient administratively discharged. - Medication Discharge Medications: Ambulatory Orders Gabapentin [Neurontin -] 300 mg PO TID capsule 05/15/20 Quetiapine Fumarate [Seroquel -] 50 mg PO BID tablet 05/15/20 - Medication-Assisted Treatment (MAT) Medication-Assisted Treatment (MAT): No - Discharge Instructions Diet, activity, other medical instructions: Diet: reg Activity: amd ad keenan Other medical instructions: f/u with pcp as recommended - Follow-up Referral Minutes to complete discharge: 30 - AMA Did Patient Leave Against Medical Advice: No Additional Comments: Involuntary/Administrative discharge
== END 2020-05-18 15:20 | disposition left against medical advice (07) | DRG 772 ==
LOC: YASAS 12:43 → Y3W 12:44
PROVIDERS: ADMIT Allergy & Immunology; ATTEND Allergy & Immunology
PROC: HZ42ZZZ Group Counseling for Substance Abuse Treatment, Cognitive-Behavioral (ICD-10-PCS; principal; 2020-05-15)
DX: F11.20 Opioid dependence, uncomplicated (principal); F13.20 Sedative, hypnotic or anxiolytic dependence, uncomplicated; F17.210 Nicotine dependence, cigarettes, uncomplicated; K21.9 Gastro-esophageal reflux disease without esophagitis; K59.00 Constipation, unspecified; R14.1 Gas pain; R07.89 Other chest pain
CPT/HCPCS: J0735